=== PATIENT | female | born 1975 | race Caucasian/White ===

== ENCOUNTER 2023-02-01 09:01 | Outpatient (OUT) | payer BC, SELFPAY ==
--- NOTE | 2023-02-01 09:05 | MM_ITS ---
Patient: MICHELLE WHITAKER Exam Date: 02/01/2023 : 1975 Gender:F Ordering : Non-Staff Physician Admission #: [id number] Family : ALF DOWD Order #: [id number] CLICK HERE TO VIEW EXAM RADIOLOGY REPORT PROCEDURE: MM TOMOSYNTHESIS SCREENING BI COMPARISON: MG MAMM SCREEN [place] W CAD, 06/27/2017. MG MAMM SCREEN 3D [place] CAD, 01/26/2022. INDICATIONS: Screening Calculator Name NCI Breast Cancer Risk Assessment Tool 5 Year Breast Cancer Risk 0.40% Lifetime Breast Cancer Risk 4.40% Personal Breast Cancer No Personal Ovarian Cancer No Treatments None Family Cancers Aunt-paternal with breast cancer at age ~50. LOCATION: [facility] BREAST COMPOSITION: Heterogeneously dense,which may obscure small masses. FINDINGS: DIAGNOSTIC CATEGORY 1--NEGATIVE. NO CHANGE FROM COMPARISON ASSESSMENT. Scattered benign-appearing lymph nodes are present. RIGHT BREAST: No significant suspicious finding. LEFT BREAST: No significant suspicious finding. RECOMMENDATIONS: ROUTINE MAMMOGRAM AND CLINICAL EVALUATION IN 12 MONTHS. PLEASE NOTE: A NORMAL MAMMOGRAM DOES NOT EXCLUDE THE POSSIBILITY OF BREAST CANCER. A CLINICALLY SUSPICIOUS PALPABLE LUMP SHOULD BE BIOPSIED. Dictated by: Alf Diaz MD on 02/01/2023 at 10:01 Approved by: Alf Diaz MD on 02/01/2023 at 10:02
== END 2023-02-01 09:02 | disposition home or self-care (01) ==
PROVIDERS: PCP Family Medicine
DX: Z12.31 Encounter for screening mammogram for malignant neoplasm of breast (principal); Z80.3 Family history of malignant neoplasm of breast
CPT/HCPCS: 77063; 77067

== ENCOUNTER 2024-03-13 12:51 | Outpatient (OUT) | payer BC, SELFPAY ==
--- NOTE | 2024-03-13 12:56 | MM_ITS ---
Patient Name: MICHELLE WHITAKER MR#: [id number] : 1975 Exam Date: 03/13/2024 Ordering Doctor: DR ALF DOWD RADIOLOGY REPORT PROCEDURE: MM TOMOSYNTHESIS SCREENING BI COMPARISON: MG MAMM SCREEN 3D [place] CAD, 01/26/2022. MM TOMOSYNTHESIS SCREENING BI, 02/01/2023. INDICATIONS: screening for malignant neoplasm of breast Calculator Name NCI Breast Cancer Risk Assessment Tool 5 Year Breast Cancer Risk 0.40% Lifetime Breast Cancer Risk 4.30% Personal Breast Cancer No Personal Ovarian Cancer No Treatments None Family Cancers Aunt-paternal with breast cancer at age ~50. LOCATION: [facility] BREAST COMPOSITION: The breasts are heterogeneously dense,which may obscure small masses. FINDINGS: DIAGNOSTIC CATEGORY 1--NEGATIVE. NO CHANGE FROM COMPARISON ASSESSMENT. Scattered benign-appearing calcifications are present. Scattered benign-appearing lymph nodes are present. RIGHT BREAST: No significant suspicious finding. LEFT BREAST: No significant suspicious finding. RECOMMENDATIONS: ROUTINE MAMMOGRAM AND CLINICAL EVALUATION IN 12 MONTHS. PLEASE NOTE: A NORMAL MAMMOGRAM DOES NOT EXCLUDE THE POSSIBILITY OF BREAST CANCER. A CLINICALLY SUSPICIOUS PALPABLE LUMP SHOULD BE BIOPSIED. Dictated by: Alf Diaz MD on 03/13/2024 at 14:58 Approved by: Alf Diaz MD on 03/13/2024 at 15:00
--- OUTSIDE RECORDS SUMMARY | 2024-03-13 13:14 | XMS_ITS | CCD ---
Author Organization [facility] Care Team Providers Care Manager Card Name Role Phone Annika BREEN, Xander Holland Unavailable ISAKOV, DIO Unavailable Unavailable ISAKOV, DIO Unavailable Unavailable ISAKOV, DIO Unavailable Unavailable ISAKOV, DIO Unavailable Unavailable ISAKOV, DIO Unavailable Unavailable ISAKOV, DIO Unavailable Unavailable FESTUS ALMARAZ Referring Unavailable SRINIVAS LOYA Primary Care Unavailable Srinivas Loya Primary Care Provider Srinivas Loya MD Primary Care Provider [phone] SRINIVAS LOYA Primary Care Unavailable SRINIVAS LOYA Primary Care Unavailable KARASIReinaldo, DR FERNANDEZ Admitting Unavailable KARASIK, DR FERNANDEZ Attending Unavailable KARASIK, DR FERNANDEZ Consulting Unavailable MISC, DR DIAZ Primary Care Unavailable BRYN MAWR, DR SRINIVAS Day Consulting Unavailable KARASIK, DR FERNANDEZ Attending Unavailable KARASIK, DR FERNANDEZ Consulting Unavailable MISC, DR DIAZ Primary Care Unavailable KARASIK, DR FERNANDEZ Admitting Unavailable KOKO RIVERA Referring Unavailable SRINIVAS LOYA Primary Care Unavailable Problems Active Problems Problem Classification Problem Date Documented Date Episodic/Chronic Immunizations and screening for infectious disease (2 sources) Contact with and (suspected) exposure to other viral communicable diseases; Translations: [Encounter for screening for human papillomavirus (HPV)] Onset: 12-09-2021 Episodic Other screening for suspected conditions (not mental disorders or infectious disease) (8 sources) Encounter for screening mammogram for malignant neoplasm of breast; Translations: [Encounter for screening for malignant neoplasm of cervix] Onset: 12-07-2021 Episodic Residual codes; unclassified (1 source) Family history of malignant neoplasm of breast; Translations: [FAMILY HX MALIG NEOPLASM OF BREAST] Onset: 01-30-2022 Episodic Unclassified (1 source) Unknown / UNK(Unknown) Onset: 09-29-2016 Unclassified (2 sources) physical; Translations: [physical] Onset: 05-22-2023 Past or Other Problems Problem Classification Problem Date Documented Da te Episodic/Chronic Other lower respiratory disease (1 source) Cough; Translations: [Cough] Episodic Other nervous system disorders (1 source) Loss of taste; Translations: [Loss of taste] Episodic Other nervous system disorders (1 source) Loss of sense of smell; Translations: [Loss of smell] Episodic Unclassified (2 sources) Encounter for cosmetic surgery; Translations: [Encounter for cosmetic surgery] Onset: 09-29-2016 08-09-2017 Episodic Unclassified (1 source) Problem Results Test Name Value Interpretation Reference Range Facility [facility] MAMM SCREEN 3D [place] CADon 01-26-2022 [facility] MAMM SCREEN 3D [place] CAD Patient: ALYSSA WHITAKER Exam Date: 01/26/2022 : 1975 Gender:F Ordering : DR REBECCA KINGSTON . Admission #: [id number] Family : Order #: [id number] CLICK HERE TO VIEW EXAM RADIOLOGY REPORT PROCEDURE: MAMMOGRAM SCREENING 3D BILATERAL CAD COMPARISON: MG MAMM SCREEN [place] W CAD, 06/08/2016. MG MAMM SCREEN [place] W CAD, 06/27/2017. INDICATIONS: Screening mammography Calculator Name NCI Breast Cancer Risk Assessment Tool 5 Year Breast Cancer Risk 0.40% Lifetime Breast Cancer Risk 4.40% Personal Breast Cancer No Personal Ovarian Cancer No Treatments None Family Cancers Aunt-paternal with breast cancer at age 50. LOCATION: [facility] BREAST COMPOSITION: Heterogeneously dense,which may obscure small masses. FINDINGS: DIAGNOSTIC CATEGORY 2--BENIGN FINDING. NO CHANGE FROM COMPARISON. Scattered benign-appearing calcifications are present. Scattered benign-appearing lymph nodes are present. RIGHT BREAST: No significant suspicious finding. LEFT BREAST: No significant suspicious finding. RECOMMENDATIONS: ROUTINE MAMMOGRAM AND CLINICAL EVALUATION IN 12 MONTHS. PLEASE NOTE: A NORMAL MAMMOGRAM DOES NOT EXCLUDE THE POSSIBILITY OF BREAST CANCER. A CLINICALLY SUSPICIOUS PALPABLE LUMP SHOULD BE BIOPSIED. Dictated by: Srinivas Diaz MD on 01/26/2022 at 13:20 Approved by: Srinivas Diaz MD on 01/26/2022 at 13:30 Normal [facility] PAP ACOG PANEL 2: 30 to 65on 12-14-2021 . . Normal [facility] Comment on above: Result Comment: Perf ormed at: WB Performed By: #### [id number] #### [facility] [address] [address] [address] Ernestine Corrales Age Gdln ACOG Testing 30-65 Normal [facility] Comment on above: Performed By: #### [id number] #### [facility] [address] [address] [address] Ernestine Corrales DIAGNOSIS: Comment Normal [facility] Comment on above: Result Comment: NEGA TIVE FOR INTRAEPITHELIAL LESION OR MALIGNANCY. THIS SPECIMEN WAS RESCREENED PART OF OUR CAPACITOR PACK PRESS OPERATOR PROGRAM. Performed at: WB Performed By: #### [id number] #### [facility] [address] [place] [address] Dr. Ernestine Corrales HPV Aptima Negative Normal Negative [facility] Comment on above: Result Comment: This nucleic acid amplification test detects fourteen high-risk HPV types (16,18,31,33,35,39,45,51,52,56,58,59,66,68) without differentiation. Performed at: =G Performed By: #### [id number] #### [facility] [address] [place] [address] Dr. Ernestine Corrales Methodology: Comment Normal [facility] Comment on above: Result Comment: This liquid based ThinPrep(R) pap test was screened with the use of an image guided system. Performed at: WB Performed By: #### [id number] #### [facility] [address] [place] [address] Dr. Ernestine Corrales Note: Comment Normal [facility] Comment on above: Result Comment: The Pap smear is a screening test designed to aid in the detection of premalignant and malignant conditions of the uterine cervix. It is not a diagnostic procedure and should not be used as the sole means of detecting cervical cancer. Both false-positive and false-negative reports do occur. . Performed at: WB Performed By: #### [id number] #### [facility] [address] [place] [address] Dr. Ernestine Corrales Performed by: Comment Normal [facility] Comment on above: Result Comment: Constance Gomez, Billing Rep (ASCP) Performed at: WB Performed By: #### [id number] #### [facility] [address] [place] [address] Dr. Ernestine Corrales QC reviewed by: Comment Normal [facility] Comment on above: Result Comment: Katya Vides, Supervisory Billing Rep (ASCP) Performed at: WB Performed By: #### [id number] #### [facility] [address] [place] [address] Dr. Ernestine Corrales Specimen adequacy: Comment Normal [facility] Comment on above: Result Comment: Sati sfactory for evaluation. Endocervical and/or squamous metaplastic cells (endocervical component) are present. Performed at: WB Performed By: #### [id number] #### [facility] [address] [place] [address] Dr. Ernestine Corrales APTTon 01-12-2021 aPTT Coag (Bld) [Time] 27.7 s Normal 23.9-33.8 [facility] Comment on above: Result Comment: IV Heparin Therapy Range: 62.0-94.0 Performed By: #### U MICAO, PTT, CDP, HCG, PT, UA, CP #### [facility] [address] [place] [address] Manager Occupational: Srinivas Krueger MD APTTOrdered By: Srinivas juan on 01-12-2021 aPTT Coag (Bld) [Time] 27.7 s [facility] Phone: Comment on above: IV Heparin Therapy Range: 62.0-94.0 [facility] Work Phone: CBC Auto DifferentialOrdered By: Srinivas Loya on 01-12-2021 Absolute Eos # 0.04 [facility] Work Phone: Absolute Immature Granulocyte <0.03 [facility] Work Phone: [phone] Absolute Lymph # 1.59 [facility] Work Phone: [phone] Absolute Gillespie # 0.36 [facility] Work Phone: Basophils (Bld) [#/Vol] 0.03 10*3/uL [employer] Phone: Basophils/100 WBC (Bld) 1 % 0 - 2 % [employer] Phone: Differential Type NOT REPORTED [employer] Phone: Eosinophils/100 WBC (Bld) 1 % 1 - 4 % [employer] Phone: Hematocrit (Bld) [Volume fraction] 42.7 % 36.3 - 47.1 % [employer] Phone: Hemoglobin.gastroint estinal spec 1 Ql (Stl) 14.0 g/dL 11.9 - 15.1 g/dL [employer] Phone: Immature granulocytes/100 WBC (Bld) 0 % 0 [employer] Phone: Lymphocytes/100 WBC (Bld) 43 % 24 - 43 % [employer] Phone: MCH (RBC) [Entitic mass] 31.0 pg 25.2 - 33.5 pg [employer] Phone: MCHC (RBC) [Mass/Vol] 32.8 g/dL 28.4 - 34.8 g/dL [employer] Phone: MCV (RBC) [Entitic vol] 94.5 fL 82.6 - 102.9 fL [employer] Phone: Monocytes/100 WBC (Bld) 10 % 3 - 12 % [employer] Phone: NRBC Automated 0.0 0.0 per 100 WBC [employer] Phone: Platelet distribution width (Bld) [Ratio] 12.5 % 11.8 - 14.4 % [employer] Phone: Platelet Estimate NOT REPORTED [employer] Phone: Platelet mean volume (Bld) [Entitic vol] 9.3 fL 8.1 - 13.5 fL [employer] Work Phone: Platelets (Bld) [#/Vol] 215 10*3/uL [employer] Phone: RBC (Bld) [#/Vol] 4.52 10*6/uL 3.95 - 5.11 m/uL [employer] Phone: RBC (Bld) [#/Vol] NOT REPORTED [employer] Phone: Segmented neutrophils/100 WBC (Bld) 45 % 36 - 65 % [employer] Phone: Segs Absolute 1.71 [employer] Work Phone: WBC (Bld) [#/Vol] 3.7 10*3/uL [employer] Phone: WBC (Bld) [#/Vol] NOT REPORTED [employer] Phone: [employer] Phone: CBC with Diffon 01-12-2021 Abs. Basophil 0.03 k/uL Normal 0.00-0.20 [facility] Comment on above: Performed By: #### U MICAO, PTT, CDP, HCG, PT, UA, CP #### [facility] [address] [place] [address] Manager Occupational: Srinivas Krueger MD Abs.Imm.Granulocyte <0.03 Normal 0.00-0.30 [facility] Comment on above: Performed By: #### U MICAO, PTT, CDP, HCG, PT, UA, CP #### [facility] [address] [place] [address] Manager Occupational: Srinivas Krueger MD Abs.Neutrophil (Seg) 1.71 k/uL Normal 1.50-8.[address] [facility] Comment on above: Performed By: #### U MICAO, PTT, CDP, HCG, PT, UA, CP #### [facility] [address] [place], [facility]83 Manager Occupational: Srinivas Krueger MD Basophils/100 WBC (Bld) 1 % Normal 0-2 [facility] Comment on above: Performed By: #### U MICAO, PTT, CDP, HCG, PT, UA, CP #### [facility] [address] [place] [id number] Manager Occupational: Srinivas Krueger MD Eosinophils (Bld) [#/Vol] 0.04 10*3/uL Normal 0.00-0.44 [facility] Comment on above: Performed By: #### U MICAO, PTT, CDP, HCG, PT, UA, CP #### [address] [place] [id number] Manager Occupational: Srinivas Krueger MD Eosinophils/100 WBC (Bld) 1 % Normal 1-4 [facility] Comment on above: Performed By: #### U MICAO, PTT, CDP, HCG, PT, UA, CP #### [address] [place] [id number] Manager Occupational: Srinivas Krueger MD Erythrocyte distribution width (RBC) [Ratio] 12.5 % Normal 11.8-14.4 [facility] Comment on above: Performed By: #### U MICAO, PTT, CDP, HCG, PT, UA, CP #### [address] [place], [facility]83 Manager Occupational: Srinivas Krueger MD Hematocrit (Bld) [Volume fraction] 42.7 % Normal 36.3-47.1 [facility] Comment on above: Performed By: #### U MICAO, PTT, CDP, HCG, PT, UA, CP #### [address] [place] [address] Manager Occupational: Srinivas Krueger MD Hemoglobin (Bld) [Mass/Vol] 14.0 g/dL Normal 11.9-15.1 [facility] Comment on above: Performed By: #### U MICAO, PTT, CDP, HCG, PT, UA, CP #### [facility] [address] [place], [place] [id number] Manager Occupational: Srinivas Krueger MD Immature granulocytes/100 WBC (Bld) 0 % Normal 0 [facility] Comment on above: Performed By: #### U MICAO, PTT, CDP, HCG, PT, UA, CP #### [facility] [address] [place], [place] [id number] Manager Occupational: Srinivas Krueger MD Lymphocytes (Bld) [#/Vol] 1.59 10*3/uL Normal 1.10-3.70 [facility] Comment on above: Performed By: #### U MICAO, PTT, CDP, HCG, PT, UA, CP #### [address] [place], [facility]83 Manager Occupational: Srinivas Krueger MD Lymphocytes/100 WBC (Bld) 43 % Normal 24-43 [facility] Comment on above: Performed By: #### U MICAO, PTT, CDP, HCG, PT, UA, CP #### [address] [place], [facility]83 Manager Occupational: Srinivas Krueger MD MCH (RBC) [Entitic mass] 31.0 pg Normal 25.2-33.5 [facility] Comment on above: Performed By: #### U MICAO, PTT, CDP, HCG, PT, UA, CP #### [address] [place], [place] [id number] Manager Occupational: Srinivas Krueger MD MCHC (RBC) [Mass/Vol] 32.8 g/dL Normal 28.4-34.8 [facility] Comment on above: Performed By: #### U MICAO, PTT, CDP, HCG, PT, UA, CP #### [facility] [address] [place], [place] [id number] Manager Occupational: Srinivas Krueger MD MCV (RBC) [Entitic vol] 94.5 fL Normal 82.6-102.9 [facility] Comment on above: Performed By: #### U MICAO, PTT, CDP, HCG, PT, UA, CP #### [facility] [address] [place], [facility]83 Manager Occupational: Srinivas Krueger MD Monocytes (Bld) [#/Vol] 0.36 10*3/uL Normal 0.10-1.20 [facility] Comment on above: Performed By: #### U MICAO, PTT, CDP, HCG, PT, UA, CP #### [facility] [address] [place], [facility]83 Manager Occupational: Srinivas Krueger MD Monocytes/100 WBC (Bld) 10 % Normal 3-12 [facility] Comment on above: Performed By: #### U MICAO, PTT, CDP, HCG, PT, UA, CP #### [address] [place], [facility]83 Manager Occupational: Srinivas Krueger MD Neutrophil (Seg) 45 % Normal 36-65 [facility] Comment on above: Performed By: #### U MICAO, PTT, CDP, HCG, PT, UA, CP #### [address] [place], [facility]83 Manager Occupational: Srinivas Krueger MD NRBC Automated 0.0 per 100 WBC Normal 0.0 [facility] Comment on above: Performed By: #### U MICAO, PTT, CDP, HCG, PT, UA, CP #### [facility] [address] [place], [facility]83 Manager Occupational: Srinivas Krueger MD Platelet mean volume (Bld) [Entitic vol] 9.3 fL Normal 8.1-13.5 [facility] Comment on above: Performed By: #### U MICAO, PTT, CDP, HCG, PT, UA, CP #### [facility] [address] [place] [address] Manager Occupational: Srinivas Krueger MD Platelets (Bld) [#/Vol] 215 10*3/uL Normal 138-453 [facility] Comment on above: Performed By: #### U MICAO, PTT, CDP, HCG, PT, UA, CP #### [facility] [address] [place] [address] Manager Occupational: Srinivas Krueger MD RBC (Bld) [#/Vol] 4.52 10*6/uL Normal 3.95-5.11 [facility] Comment on above: Performed By: #### U MICAO, PTT, CDP, HCG, PT, UA, CP #### [address] [place], [place] [address] Manager Occupational: Srinivas Krueger MD WBC (Bld) [#/Vol] 3.7 10*3/uL Normal 3.5-11.3 [facility] Comment on above: Performed By: #### U MICAO, PTT, CDP, HCG, PT, UA, CP #### [address] [place], [place] [id number] Manager Occupational: Srinivas Krueger MD Auto Diff Performed NOT REPORTED Normal [facility] Comment on above: Performed By: #### U MICAO, PTT, CDP, HCG, PT, UA, CP #### [facility] [address] [place] [address] [place] [address] Manager Occupational: Srinivas Krueger MD Platelet Estimate NOT REPORTED Normal [facility] Comment on above: Performed By: #### U MICAO, PTT, CDP, HCG, PT, UA, CP #### [address] [place], [place] [id number] Manager Occupational: Srinivas Krueger MD RBC morphology finding Nom (Bld) NOT REPORTED Normal [facility] Comment on above: Performed By: #### U MICAO, PTT, CDP, HCG, PT, UA, CP #### [facility] [address] [place] [address] Manager Occupational: Srinivas Krueger MD WBC Morphology NOT REPORTED Normal [facility] Comment on above: Performed By: #### U MICAO, PTT, CDP, HCG, PT, UA, CP #### [facility] [address] [place], [place] [id number] Manager Occupational: Srinivas Krueger MD Comp Metabolic Profon 2020 (cont.) Normal [facility] Comment on above: Result Comment: Aver age GFR for 40-49 years old: 99 mL/min/1.73sq m Chronic Kidney Disease: <60 mL/min/1.73sq m Kidney failure: <15 mL/min/1.73sq m eGFR calculated using average adult body mass. Additional eGFR calculator available at: http://www.[employer]SyMynd/multiple_crcl_2012.htm Performed By: #### U MICAO, PTT, CDP, HCG, PT, UA, CP #### [address] [place] [address] Manager Occupational: Srinivas Krueger MD Albumin [Mass/Vol] 4.4 g/dL Normal 3.5-5.2 [facility] Comment on above: Performed By: #### U MICAO, PTT, CDP, HCG, PT, UA, CP #### [facility] [address] [place] [address] Manager Occupational: Srinivas Krueger MD Albumin/Glob Ratio 1.6 Normal 1.0-2.5 [facility] Comment on above: Performed By: #### U MICAO, PTT, CDP, HCG, PT, UA, CP #### [facility] [address] [place] [address] Manager Occupational: Srinivas Krueger MD Alkaline Phos 60 U/L Normal 35-104 [facility] Comment on above: Performed By: #### U MICAO, PTT, CDP, HCG, PT, UA, CP #### [facility] [address] [place], [place] [id number] Manager Occupational: Srinivas Krueger MD ALT [Catalytic activity/Vol] 12 U/L Normal 5-33 [facility] Comment on above: Performed By: #### U MICAO, PTT, CDP, HCG, PT, UA, CP #### [facility] [address] [place], [place] [id number] Manager Occupational: Srinivas Krueger MD Anion gap [Moles/Vol] 9 mmol/L Normal 9-17 [facility] Comment on above: Performed By: #### U MICAO, PTT, CDP, HCG, PT, UA, CP #### [facility] [address] [place], [place] [id number] Manager Occupational: Srinivas Krueger MD AST [Catalytic activity/Vol] 17 U/L Normal <32 [facility] Comment on above: Performed By: #### U MICAO, PTT, CDP, HCG, PT, UA, CP #### [facility] [address] [place], [place] [id number] Manager Occupational: Srinivas Krueger MD Bilirubin [Mass/Vol] 0.54 mg/dL Normal 0.3-1.[address] [facility] Comment on above: Performed By: #### U MICAO, PTT, CDP, HCG, PT, UA, CP #### [facility] [address] [place], [place] [id number] Manager Occupational: Srinivas Krueger MD BUN/CRE Ratio 15 Normal 9-20 [facility] Comment on above: Performed By: #### U MICAO, PTT, CDP, HCG, PT, UA, CP #### [facility] [address] [place], [place] [id number] Manager Occupational: Srinivas Krueger MD Calcium [Mass/Vol] 9.1 mg/dL Normal 8.6-10.4 [facility] Comment on above: Performed By: #### U MICAO, PTT, CDP, HCG, PT, UA, CP #### [facility] [address] [place] [address] Manager Occupational: Srinivas Krueger MD Chloride [Moles/Vol] 100 mmol/L Normal 98-[address] [facility] Comment on above: Performed By: #### U MICAO, PTT, CDP, HCG, PT, UA, CP #### [facility] [address] [place] [address] Manager Occupational: Srinivas Krueger MD CO2 [Moles/Vol] 23 mmol/L Normal 20-31 [facility] Comment on above: Performed By: #### U MICAO, PTT, CDP, HCG, PT, UA, CP #### [facility] [address] [place], [place] [id number] Manager Occupational: Srinivas Krueger MD Creatinine [Mass/Vol] 0.74 mg/dL Normal 0.50-0.90 [facility] Comment on above: Performed By: #### U MICAO, PTT, CDP, HCG, PT, UA, CP #### [facility] [address] [place] [address] Manager Occupational: Srinivas Krueger MD GFR, Amer >60 Normal >60 [facility] Comment on above: Performed By: #### U MICAO, PTT, CDP, HCG, PT, UA, CP #### [facility] [address] [place] [address] Manager Occupational: Srinivas Krueger MD GFR,non Amer >60 Normal >[address] [facility] Comment on above: Performed By: #### U MICAO, PTT, CDP, HCG, PT, UA, CP #### [facility] [address] [place], [place] [id number] Manager Occupational: Srinivas Krueger MD Glucose [Mass/Vol] 100 mg/dL High 70-99 [facility] Comment on above: Performed By: #### U MICAO, PTT, CDP, HCG, PT, UA, CP #### [facility] [address] [place] [address] Manager Occupational: Srinivas Krueger MD Potassium [Moles/Vol] 4.0 mmol/L Normal 3.7-5.3 [facility] Comment on above: Performed By: #### U MICAO, PTT, CDP, HCG, PT, UA, CP #### [facility] [address] [place] [address] Manager Occupational: Srinivas Krueger MD Protein [Mass/Vol] 7.2 g/dL Normal 6.4-8.3 [facility] Comment on above: Performed By: #### U MICAO, PTT, CDP, HCG, PT, UA, CP #### [facility] [address] [place] [address] Manager Occupational: Srinivas Krueger MD Sodium [Moles/Vol] 132 mmol/L Low 135-144 [facility] Comment on above: Performed By: #### U MICAO, PTT, CDP, HCG, PT, UA, CP #### [facility] [address] [place], [facility]83 Manager Occupational: Srinivas Krueger MD Staging: Normal [facility] Comment on above: Result Comment: Stag e 1: Some kidney damage normal GFR Stage 2: Mild kidney damage GFR 60-89 Stage 3: Moderate kidney damage GFR 30-59 Stage 4: Severe kidney damage GFR 15-29 Stage 5: Severe kidney damage GFR <15 ESRD - chronic treatment by dialysis or transplant Performed By: #### U MICAO, PTT, CDP, HCG, PT, UA, CP #### [facility] [address] [place] [address] Manager Occupational: Srinivas Kruegre MD Urea nitrogen [Mass/Vol] 11 mg/dL Normal 6-20 [facility] Comment on above: Performed By: #### U MICAO, PTT, CDP, HCG, PT, UA, CP #### [facility] [address] [place] [address] Manager Occupational: Srinivas Krueger MD Comprehensive Metabolic Pane lOrdered By: Srinivas Loya on 01-12-2021 Albumin [Mass/Vol] 4.4 g/dL 3.5 - 5.2 g/dL [employer] Phone: Albumin/Globulin [Mass ratio] 1.6 {ratio} [employer] Phone: ALP (Bld) [Catalytic activity/Vol] 60 U/L 35 - 104 U/L [employer] Phone: ALT [Catalytic activity/Vol] 12 U/L 5 - 33 U/L [facility] Phone: Anion gap [Moles/Vol] 9 mmol/L 9 - 17 mmol/L [facility] Phone: AST [Catalytic activity/Vol] 17 U/L <32 [employer] Phone: Bilirubin [Mass/Vol] 0.54 mg/dL 0.3 - 1 .2 mg/dL [facility] Phone: Calcium [Mass/Vol] 9.1 mg/dL 8.6 - 10. 4 mg/dL [employer] Phone: Chloride [Moles/Vol] 100 mmol/L 98 - 10 7 mmol/L [employer] Phone: CO2 [Moles/Vol] 23 mmol/L 20 - 31 mmol/L [employer] Phone: Creatinine [Mass/Vol] 0.74 mg/dL 0.50 - 0.90 mg/dL [employer] Phone: Free PSA/Total PSA [Mass fraction] 7.2 g/dL 6.4 - 8.3 g/dL [employer] Phone: GFR >60 >60 mL/min [employer] Phone: GFR Non- >60 >60 mL/min [employer] Phone: Glucose [Mass/Vol] 100 mg/dL High 70 - 99 mg/dL [employer] Phone: Interpretation and review of laboratory results Abnormal [employer] Phone: Potassium [Moles/Vol] 4.0 mmol/L 3.7 - 5.3 mmol/L [employer] Phone: Sodium [Moles/Vol] 132 mmol/L Low 135 - 144 mmol/L [employer] Phone: Urea nitrogen (BldV) [Mass/Vol] 11 mg/dL 6 - 20 mg/dL [employer] Phone: Urea nitrogen/Creatinine (Bld) [Mass ratio] 15 [employer] Phone: [employer] Phone: EKG 12 LeadOrdered By: Nai Amanda on 01-12-2021 Atrial Rate 59 BPM [employer] Phone: P [place] 11 degrees [employer] Phone: P-R Interval 150 ms [employer] Phone: Q-T Interval 442 ms [employer] Phone: QRS Duration 76 ms [employer] Phone: QTc Calculation (Bazett) 437 ms [employer] Phone: R [place]wick 53 degrees [employer] Phone: T [place] 56 degrees [employer] Phone: Ventricular Rate 59 BPM [facility] [facility] Phone: Sinus bradycardia Low voltage QRS Cannot rule out Anterior infarct , age undetermined Abnormal ECG No previous ECGs available Confirmed by Virginia Brothers MD ([id number]) on 01/12/2021 11:35:53 PM [employer] Phone: Stew, Mhpn Incoming E kg Results From [facility] - 01/12/2021 11:36 PM EDT Sinus bradycardia Low voltage QRS Cannot rule out Anterior infarct , age undetermined Abnormal ECG No previous ECGs available Confirmed by Virginia Brothers MD ([id number]) on 01/12/2021 11:35:53 PM [employer] Phone: [employer] Phone: HCG Qualitative, SerumOrdere d By: Srinivas Loya on 01-12-2021 hCG Qual Negative NEGATIVE [employer] Phone: Comment on above: Specimens with hCG l evels near the threshold of the test (25 mIU/mL) may give a negative or indeterminate result. In such cases, another test should be performed with a new specimen in 48-72 hours. If early is suspected clinically in this setting, correlation with quantitative serum b-hCG level is suggested. [employer] has confirmed the use of plasma for this test. This has not been cleared or approved by the U.S. Food and Drug Administration. The FDA has determined that such clearance is not necessary. [employer] Phone: HCG Screen, Bloodon 01-13-20 21 HCG Screen, Blood Negative Normal NEG [facility] Comment on above: Result Comment: Spec imens with hCG levels near the threshold of the test (25 mIU/mL) may give a negative or indeterminate result. In such cases, another test should be performed with a new specimen in 48-72 hours. If early is suspected clinically in this setting, correlation with quantitative serum b-hCG level is suggested. [employer] has confirmed the use of plasma for this test. This has not been cleared or approved by the U.S. Food and Drug Administration. The FDA has determined that such clearance is not necessary. Performed By: #### U MICAO, PTT, CDP, HCG, PT, UA, CP #### [facility] [address] [place] [address] Manager Occupational: Srinivas Krueger MD Laboratory - Chemistry and C hemistry - challengeOrdered By: Srinivas Loya on 01-12-2021 GFR/1.73 sq M.predicted MDRD (S/P/Bld) [Vol rate/Area] [facility] Work Phone: Comment on above: Average GFR for 40-4 9 years old: 99 mL/min/1.73sq m Chronic Kidney Disease: <60 mL/min/1.73sq m Kidney failure: <15 mL/min/1.73sq m eGFR calculated using average adult body mass. Additional eGFR calculator available at: http://www.[employer]/multiple_crcl_2012.htm Stage 1: Some kidney damage normal GFR Stage 2: Mild kidney damage GFR 60-89 Stage 3: Moderate kidney damage GFR 30-59 Stage 4: Severe kidney damage GFR 15-29 Stage 5: Severe kidney damage GFR <15 ESRD - chronic treatment by dialysis or transplant Microscopic UrinalysisOrdere d By: Srinivas Loya on 01-12-2021 - [facility] Work Phone: Amorphous, UA NOT REPORTED None [facility] Work Phone: Bacteria, UA TRACE Abnormal None [facility] Work Phone: Casts UA NOT REPORTED /LPF [facility] Work Phone: Crystals, UA NOT REPORTED None /HPF [facility] Work Phone: Epithelial Cells UA 2 TO 5 [facility] Work Phone: Mucus, UA NOT REPORTED None [facility] Work Phone: Other Observations UA NOT REPORTED NOT REQ. [facility] Work Phone: RBC, UA 5 TO 10 [facility] Work Phone: Renal Epithelial, UA NOT REPORTED 0 /HPF [facility] Work Phone: Trichomonas, UA NOT REPORTED None [employer] Work Phone: WBC, UA 0 TO 2 [facility] Phone: Yeast, UA NOT REPORTED None [facility] Phone: No Panel InformationOrdered By: Srinivas Loya on 01-12-2021 Interpretation and review of laboratory results Abnormal [facility] Phone: [facility] Phone: PTon 01-12-2021 INR Coag (PPP) [Relative time] 1.2 {INR} Normal [facility] Comment on above: Result Comment: Non-therapeutic Range: INR = 0.9-1.2 Therapeutic Range: Moderate Anticoagulant Intensity: INR = 2.0-3.0 High Anticoagulant Intensity: INR = 2.5-3.5 Performed By: #### U MICAO, PTT, CDP, HCG, PT, UA, CP #### [facility] [address] [place] [address] [place] [address] Manager Occupational: Srinivas Krueger MD PT Coag (PPP) [Time] 14.6 s High 11.5-14.[address] [facility] Comment on above: Performed By: #### U MICAO, PTT, CDP, HCG, PT, UA, CP #### [facility] [address] [place] [address] [place] [address] Manager Occupational: Srinivas Krueger MD Protime-INROrdered By: Srinivas Loya on 01-12-2021 INR Coag (Bld) [Relative time] 1.2 {INR} [facility] [employer] Phone: Comment on above: Non-therapeutic Range: INR = 0.9-1.2 Therapeutic Range: Moderate Anticoagulant Intensity: INR = 2.0-3.0 High Anticoagulant Intensity: INR = 2.5-3.5 Interpretation and review of laboratory results Abnormal [facility] Phone: PT Coag (PPP) [Time] 14.6 s High [facility] Work Phone: [facility] Work Phone: UrinalysisOrdered By: Srinivas Loya on 01-12-2021 Bilirubin Urine Negative NEGATIVE [facility] Work Phone: Color, UA Yellow Yellow [facility] Work Phone: Glucose, Ur Negative NEGATIVE [facility] Work Phone: Ketones Ql (U) Negative NEGATIVE [facility] Work Phone: Leukocyte esterase Test strip Ql (U) Negative NEGATIVE [facility] Work Phone: Nitrite, Urine Negative NEGATIVE [facility] Work Phone: pH, UA 6.0 [facility] Work Phone: Protein, UA Negative NEGATIVE [facility] Work Phone: Specific Vaughn, UA 1.025 [facility] Work Phone: Turbidity UA Clear Clear [facility] Work Phone: Urinalysis Comments NOT REPORTED [facility] Work Phone: Urine Hgb 1+ Abnormal NEGATIVE [facility] Work Phone: Urobilinogen, Urine Normal Normal [facility] Work Phone: Urinalysis, Routineon 2020 Bilirubin, SemiQt,Ur Negative Normal NEG [facility] Comment on above: Performed By: #### U MICAO, PTT, CDP, HCG, PT, UA, CP #### [facility] [address] [place] [address] Manager Occupational: Srinivas Krueger MD Blood, Urine 1+ Abnormal NEG [facility] Comment on above: Performed By: #### U MICAO, PTT, CDP, HCG, PT, UA, CP #### [facility] [address] [place] [address] Manager Occupational: Srinivas Krueger MD Clarity (U) Clear Normal CLEAR [facility] Comment on above: Performed By: #### U MICAO, PTT, CDP, HCG, PT, UA, CP #### [facility] [address] [place], [place] [id number] Manager Occupational: Srinivas Krueger MD Color (U) Yellow Normal YEL [facility] Comment on above: Performed By: #### U MICAO, PTT, CDP, HCG, PT, UA, CP #### [facility] [address] [place], [place] [phone] Manager Occupational: Srinivas Krueger MD Glucose Ql (U) Negative Normal NEG [facility] Comment on above: Performed By: #### U MICAO, PTT, CDP, HCG, PT, UA, CP #### [facility] [address] [place] [address] [place] [place], [place] [id number] Manager Occupational: Srinivas Krueger MD Ketones Ql (U) Negative Normal NEG [facility] Comment on above: Performed By: #### U MICAO, PTT, CDP, HCG, PT, UA, CP #### [address] [place], [place] [id number] Manager Occupational: Srinivas Krueger MD Leukocyte esterase Test strip Ql (U) Negative Normal NEG [facility] Comment on above: Performed By: #### U MICAO, PTT, CDP, HCG, PT, UA, CP #### [facility] [address] [place] [address] [place] [place], [place] [id number] Manager Occupational: Srinivas Krueger MD Nitrite,Ur Negative Normal NEG [facility] Comment on above: Performed By: #### U MICAO, PTT, CDP, HCG, PT, UA, CP #### [facility] [address] [place] [address] [place] [place], [place] [phone] Manager Occupational: Srinivas Krueger MD PH,Ur 6.0 Normal 5.0-9.0 [facility] Comment on above: Performed By: #### U MICAO, PTT, CDP, HCG, PT, UA, CP #### [facility] [address] [place] [address] [place] [address] Manager Occupational: Srinivas Krueger MD Protein Ql (U) Negative Normal NEG [facility] Comment on above: Performed By: #### U MICAO, PTT, CDP, HCG, PT, UA, CP #### [address] [place] [address] Manager Occupational: Srinivas Krueger MD Spec. Vaughn,Ur 1.025 High 1.010-1.02 0 [facility] Comment on above: Performed By: #### U MICAO, PTT, CDP, HCG, PT, UA, CP #### [address] [place] [address] Manager Occupational: Srinivas Krueger MD Urobilinogen,Ur Normal Normal NORM [facility] Comment on above: Performed By: #### U MICAO, PTT, CDP, HCG, PT, UA, CP #### [address] [place] [address] Manager Occupational: Srinivas Krueger MD Comment NOT REPORTED Normal [facility] Comment on above: Performed By: #### U MICAO, PTT, CDP, HCG, PT, UA, CP #### [address] [place] [address] Manager Occupational: Srinivas Krueger MD Urinalysis,Microon 1 ----- Normal [facility] Comment on above: Performed By: #### U MICAO, PTT, CDP, HCG, PT, UA, CP #### [address] [place], [place] [id number] Manager Occupational: Srinivas Krueger MD Bacteria TRACE Abnormal NONE [facility] Comment on above: Performed By: #### U MICAO, PTT, CDP, HCG, PT, UA, CP #### [facility] [address] [place] [address] Manager Occupational: Srinivas Krueger MD Epithelial cells LM Ql (Urine sed) 2 TO 5 Normal 0-25 [facility] Comment on above: Performed By: #### U MICAO, PTT, CDP, HCG, PT, UA, CP #### [facility] [address] [place], [place] [phone] Manager Occupational: Srinivas Krueger MD Urine RBC's 5 TO 10 Normal 0-2 [facility] Comment on above: Performed By: #### U MICAO, PTT, CDP, HCG, PT, UA, CP #### [address] [place], [place] [id number] Manager Occupational: Srinivas Krueger MD Urine WBC's 0 TO 2 Normal 0-5 [facility] Comment on above: Performed By: #### U MICAO, PTT, CDP, HCG, PT, UA, CP #### [address] [place] [address] Manager Occupational: Srinivas Krueger MD Amorphous sediment LM Ql (Urine sed) NOT REPORTED Normal [facility] Comment on above: Performed By: #### U MICAO, PTT, CDP, HCG, PT, UA, CP #### [address] [place], [facility] Manager Occupational: Srinivas Krueger MD Casts NOT REPORTED Normal [facility] Comment on above: Performed By: #### U MICAO, PTT, CDP, HCG, PT, UA, CP #### [address] [place] [address] Manager Occupational: Srinivas Krueger MD Crystals LM Nom (Urine sed) NOT REPORTED Normal [facility] Comment on above: Performed By: #### U MICAO, PTT, CDP, HCG, PT, UA, CP #### [facility] [address] [place], [place] [phone] Manager Occupational: Srinivas Krueger MD Epithelial, Renal NOT REPORTED Normal 0 [facility] Comment on above: Performed By: #### U MICAO, PTT, CDP, HCG, PT, UA, CP #### [facility] [address] [place] [address] [place] [address] Manager Occupational: Srinivas Krueger MD Mucus Strands NOT REPORTED Normal NONE [facility] Comment on above: Performed By: #### U MICAO, PTT, CDP, HCG, PT, UA, CP #### [address] [place] [address] Manager Occupational: Srinivas Krueger MD Other Observations NOT REPORTED Normal NREQ [facility] Comment on above: Performed By: #### U MICAO, PTT, CDP, HCG, PT, UA, CP #### [address] [place] [address] Manager Occupational: Srinivas Krueger MD Trichomonas NOT REPORTED Normal NONE [facility] Comment on above: Performed By: #### U MICAO, PTT, CDP, HCG, PT, UA, CP #### [address] [place], [place] [id number] Manager Occupational: Srinivas Krueger MD Yeast NOT REPORTED Normal NONE [facility] Comment on above: Performed By: #### U MICAO, PTT, CDP, HCG, PT, UA, CP #### [facility] [address] [place] [address] [place] [place], [place] [phone] Manager Occupational: Srinivas Krueger MD [id number] 10-13-2019 SARS-CoV-2 Not Detected Normal Not Detected [facility] Comment on above: Result Comment: (NOT E) This test was developed and its performance characteristics determined by [employer]. This test has not been FDA cleared or approved. This test has been authorized by FDA under an Emergency Use Authorization (EUA). This test is only authorized for the duration of time the declaration that circumstances exist justifying the authorization of the emergency use of in vitro diagnostic tests for detection of SARS-CoV-2 virus and/or diagnosis of COVID-19 infection under section 564(b)(1) of the Act, 21 U.S.C. 360bbb-3(b)(1), unless the authorization is terminated or revoked sooner. When diagnostic testing is negative, the possibility of a false negative result should be considered in the context of a patient's recent exposures and the presence of clinical signs and symptoms consistent with COVID-19. An individual without symptoms of COVID-19 and who is not shedding SARS-CoV-2 virus would expect to have a negative (not detected) result in this assay. Performed At: [facility] [address] [facility] [place] [id number] Gloria Holland MD Ph:[phone] Performed By: #### A COV #### [facility] [address], [place] [id number] Manager Occupational: Wesley Fuentes MD Clinical [facility]2017 POS Invalid Interpretation Code [facility] Work Phone: Office Visit: Cosmetic Consu lt, Rm: 2on 08-09-2017 NEGATED: Highlighted rowDocumentation of current medications (procedure) Done Invalid Interpretation Code [facility] Work Phone: NEGATED: Highlighted rowTobacco smoking status NHIS Tobacco smoking status NHIS Invalid Interpretation Code [facility] Work Phone: Clinical Lists Update: Prelo ad Extendedon 08-02-2017 Documentation of current medications (procedure) T Invalid Interpretation Code [facility] Work Phone: Florin 01-24-2017 [facility] ----ALYSSA WHITAKER ([id number]) 1975 [facility] Time Provider Iyejrcpmzx19/24/17 DIO REYNOLDS During your visit today, we recorded the following information about you:[facility] 01/24/2017 8:56 AM SignedShe wants to discuss options of doing (redoing) the butt lift. Asked forDenise since I guess that is who was in clinic last time she was here. I amsending to the pool and to juan manuel.09/29/16 OPERATION: Bilateral revision breast reduction/mastopexy.Liposuct ion of the anterior and posterior thorax with fat transfer to Buttocksbilaterally.?Juan Manuel Snyder, RN, RN 01/24/2017 6:10 PM SignedI spoke to the patient and let her know that Dr Reynolds feels he has taken asmuch fat as he can without giving her contour defects from harvesting the fat.He understands that she would like more volume in the buttocks but he does notthink she has enough fat to give her the result she is looking for.She would like to review the photos.I have sent the auth for realease of information so I can send the photos toher.Yina Torrez As of Date: 01/24/2017(No Known Allergies)Date Reviewed: 12/28/2016Reviewed by: Katherine [place] Ma - Fully AssessedReason for Visit: options about redoing the butt lift [Other]Problem List As Of Date: 01/24/2017(None) Status:Closed by AD HENDRICKSON on 01/24/17 [facility] [place] 01-11-2017 YURIN Telephone (PLASMN) ----ALYSS[facility] WHITAKER ([id number]) 1975 [facility] Dlnfmzbkbv03/11/17 DIO REYNOLDS During your visit today, we recorded the following information about you:Ad Fonseca 01/11/2017 3:39 PM SignedYou were going to compare pictures and get back to the pt in regards to anymore surgery.Juan Manuel Snyder, RN, RN 01/18/2017 5:32 PM Signedleft message for patient to call the office to discussYina Torrez As of Date: 01/11/2017(No Known Allergies)Date Reviewed: 12/28/2016Reviewed by: Katherine Bella Ma - Fully AssessedReason for Visit: was a decision made as to next phase of surgery if any [Other]Problem List As Of Date: 01/11/2017(None) Status:Closed by AD HENDRICKSON on 01/11/17 [facility] CNOVon 12-28-2016 CNOV Office Visit (PLASMN) ----ALYSSA WHITAKER ([id number]) 1975 [facility] Time Provider Department12/28/16 1:30 PM DIO REYNOLDS During your visit today, we recorded the following information about you: Pulse Blood pressure Weight Height 73/minute 122/84 55.6 kg 1.575 Vipin Reynolds MD 12/29/2016 1:01 PM SignedJennifer 41 year old female presents today for a post op visit 3 months s/pBilateral revision breast reduction/mastopexy. Liposuction of the anteriorand posterior thorax with fat transfer to Buttocks bilaterally. Unhappy withbuttock fat grafts, would like her buttocks to be more full. She is very thinand has very few places to harvest fat. Is happy with breast reduction.BP 122/84 Pulse 73 Ht 157.5 cm (5' 2ANDquot;) Wt 55.6 kg (122 lb 9.6 oz) BMI 22.42 kg/y4UEXVWCXYCMk Known AllergiesNo current outpatient prescriptions on file prior to visit.No current facility-administered medications on file prior to visit.Dorcas Deuce Loren wants her buttocks to be bigger. Overall even looking anteriorly beforeand after pictures, she got a significant improvement of her overall contour.She did of 250 cc injected per side. Admittedly this is not an awful lothowever she does not have that much to inject. I do believe her shape overallis very good. If she wants to go through more surgery we can potentially dothis however I'm unsure how much fat I we can get available. I do not believeis reasonable to ask her to gain a significant amount of weight just like andsuction out injected back in the buttocksTherefore, I will take pictures today, reviewed these pictures and decide if Ifeel it reasonable or not More fat. I discussed with her even at adiposetissue grafting for breast cases, multiple procedures often are needed.[place] Provider: SELF [200]Allergies As of Date: 12/28/2016(No Known Allergies)Date Reviewed: 12/28/2016Reviewed by: Katherine Bella Ma - Fully AssessedReason for Visit: Post Op [174]Primary Visit Diagnosis:Post-operative state [Z98.890]Problem List As Of Date: 12/28/2016(None)Medications Discontinued During This Encounter docusate sodium (COLACE) 100 mg caps* 40 c* 0 09/29/2016 12/28/2016 Class: Print RX Route: ORAL Sig: Take 1 capsule by mouth twice daily. Patient not taking: Reported on 10/26/2016 Disc: Reason for discontinue is not on file. oxyCODONE-acetaminophen (PERCOCET) 5* 40 t* 0 09/29/2016 12/28/2016 Class: Print RX Route: ORAL Sig: Take 1 tablet by mouth every 4 hours as needed. Patient not taking: Reported on 10/26/2016 Disc: Reason for discontinue is not on file. Status:Closed by DIO REYNOLDS MD on 12/29/16 Normal [facility] PROGRESSon 12-28-2016 PROGRESS HNO ID: [id number] thor: Laney Clancy PhotoService: (none)Author Type: (none)Type: Progress NotesFiled: 12/28/2016 2:23 PMNote Text:[id number] OF PHOTOS: December 28, 2016TAKEN WITH LENS:7ft / 85mm x5 [id number] / 70mm H x8 ABDOMEN. FROM BELOW BRA LINE TO BELOW PUBIC AREAPOSES:PHOTO INFO:DIAGNOSIS: MASTOPEXY/SUCTION LYPORELEASE: NO AUTHORIZATION GIVEN BY PATIENT TO USE PHOTOS FORMASTOPEXY/SUCTION LYPOPatrictravis Clancy Photo Normal [facility] PROGRESS HNO ID: [id number] thor: Dio Cruzervice: (none)Author Type: PhysicianType: Progress NotesFiled: 12/29/2016 1:01 PMNote Text:Alyssa 41 year old female presents today for a post op visit 3 monthss/p Bilateral revision breast reduction/mastopexy. Liposuction of theanterior and posterior thorax with fat transfer to Buttocks bilaterally.Unhappy with buttock fat grafts, would like her buttocks to be more full.She is very thin and has very few places to harvest fat. Is happy withbreast reduction.BP 122/84 Pulse 73 Ht 157.5 cm (5' 2 ) Wt 55.6 kg (122 lb 9.6 oz) BMI 22.42 kg/i2XNHFUTKSVRu Known AllergiesNo current outpatient prescriptions on file prior to visit.No current facility-administered medications on file prior to visit.Loren Najera wants her buttocks to be bigger. Overall even looking anteriorlybefore and after pictures, she got a significant improvement of heroverall contour.She did of 250 cc injected per side. Admittedly this is not an awful lothowever she does not have that much to inject. I do believe her shapeoverall is very good. If she wants to go through more surgery we canpotentially do this however I'm unsure how much fat I we can getavailable. I do not believe is reasonable to ask her to gain asignificant amount of weight just like and suction out injected back inthe buttocksTherefore, I will take pictures today, reviewed these pictures and decideif I feel it reasonable or not More fat. I discussed with her even atadipose tissue grafting for breast cases, multiple procedures often areneeded.Dio Reynolds MD [facility] CNOVon 10-26-2016 CNOV Office Visit (PLASMN) ----SHERMANALYSSA ([id number]) 1975 [facility] Time Provider Department10/26/16 3:45 PM DIO REYNOLDS During your visit today, we recorded the following information about you: Pulse Blood pressure Weight Height 80/minute 120/81 54.7 kg 1.575 Vipin Reynolds MD 11/01/2016 5:13 PM SignedPlastic Surgery Follow Up NoteAlyssa Jacintomora is here for follow up of: Bilateral revision breastreduction/mastopexy. Liposuction of the anterior and posterior thorax with fattransfer to Buttocks bilaterally on 09.29.16;Last visit was 10/05/16.HPI:Still not happy with the lack of fullness in her buttocks; can still fit inpants prior to fat transferHasn't been laying on her back, sleeps on her sideMeds and allergies reviewed in EPIC.Pain is 0 out of 10Objective:BP 120/81 Pulse 80 Ht 157.5 cm (5' 2ANDquot;) Wt 54.7 kg (120 lb 9.6 oz) BMI 22.06 kg/m2PE:Healing wellBreast incisions are dry and intact with no s/s infectionSlight ecchymoses on right breastButtocks- slight edemaAssessment:Expected post operative courseDoing wellBreast incisions c/d/i, no s/s infectionPlan:Follow up in 1-2 monthsPost-op photos taken todayThe patient was seen with Kaci Vyas, RNPatient is still unhappy with the lack of significant volume of her Botox.Overall the shape is much better. Her lower back and hips are much better.She has a good result from liposuction. I discussed with her that I qpabldak434 cc of fat into each Botox but she did not have much donor site. Reevaluatein a few months to see how she doesRaymond Val Reynolds Provider: SELF [200]Allergies As of Date: 10/26/2016(No Known Allergies)Date Reviewed: 10/26/2016Reviewed by: Steffi Cooper MA - Fully AssessedReason for Visit: Post Op [174]Primary Visit Diagnosis:Post-operative state [Z98.890] Other Visit Diagnosis:Other plastic surgery for unacceptable cosmetic appearance [Z41.1]Prescriptions as of 10/26/2016 Sig: OXYCODONE-ACETAMINOPHEN 5 MG-* Take 1 tablet by mouth every * Patient not taking: Reported on 10/26/2016 DOCUSATE SODIUM 100 MG CAPSULE Take 1 capsule by mouth twice* Patient not taking: Reported on 10/26/2016Problem List As Of Date: 10/26/2016(None) Status:Closed by DIO REYNOLDS MD on 11/01/16 [facility] PROGRESSon 10-26-2016 PROGRESS HNO ID: [id number] thor: Laney Clancy PhotoService: (none)Author Type: (none)Type: Progress NotesFiled: 10/26/2016 4:42 PMNote Text:[id number] OF PHOTOS: October 26, 2016TAKEN WITH LENS:7ft / 85mm x5 [id number] / 70mm H x8 ABDOMEN. FROM BELOW BRA LINE TO BELOW PUBIC AREAPOSES:PHOTO INFO:DIAGNOSIS: MASTOPEXY/SUCTION LYPORELEASE: NO AUTHORIZATION GIVEN BY PATIENT TO USE PHOTOS FORMASTOPEXY/SUCTION LYPOPatricrtavis Clancy Photo Normal [facility] PROGRESS HNO ID: [id number] thor: Dio Cruzervice: (none)Author Type: PhysicianType: Progress NotesFiled: 11/01/2016 5:13 PMNote Text:Plastic Surgery Follow Up NoteAlyssa Whitaker is here for follow up of: Bilateral revision breastreduction/mastopexy. Liposuction of the anterior and posterior thoraxwith fat transfer to Buttocks bilaterally on 09.29.16;Last visit was 10/05/16.HPI:Still not happy with the lack of fullness in her buttocks; can still fitin pants prior to fat transferHasn't been laying on her back, sleeps on her sideMeds and allergies reviewed in EPIC.Pain is 0 out of 10Objective:BP 120/81 Pulse 80 Ht 157.5 cm (5' 2 ) Wt 54.7 kg (120 lb 9.6 oz) BMI 22.06 kg/m2PE:Healing wellBreast incisions are dry and intact with no s/s infectionSlight ecchymoses on right breastButtocks- slight edemaAssessment:Expected post operative courseDoing wellBreast incisions c/d/i, no s/s infectionPlan:Follow up in 1-2 monthsPost-op photos taken todayThe patient was seen with Kaci Vyas, RNPatient is still unhappy with the lack of significant volume of her Botox. Overall the shape is much better. Her lower back and hips are muchbetter. She has a good result from liposuction. I discussed with herthat I injected 250 cc of fat into each Botox but she did not have muchdonor site. Reevaluate in a few months to see how she doesRaymfederico Reynolds MD [facility] PROGRESSon 10-06-2016 PROGRESS HNO ID: [id number] thor: Dio Bernsteinice: (none)Author Type: PhysicianType: Progress NotesFiled: 10/06/2016 8:00 AMNote Text:Patient is status post significant liposuction of her abdomen and flanks,back with fat transfer back to 50 cc per side. The patient doesn't see alarge difference between the buttock size which is understandable for theamount of fat that she had available to reinject.She is overall quite thinFrom a wound healing standpoint and her overall aesthetic standpoint shelooks very good.Structures were given. I'll see her in approximately 3 weeks or sooner asneeded.Dio Reynolds MD [facility] CNOVon 10-05-2016 CNOV Office Visit (PLASMN) ----ALYSSA WHITAKER ([id number]) 1975 FDate Time Provider Department10/05/16 1:30 PM DIO REYNOLDS During your visit today, we recorded the following information about you: Temperature Pulse Blood pressure 97.7 degrees 79/minute 107/71Raymfederico Reynolds MD 10/06/2016 8:00 AM SignedPatient is status post significant liposuction of her abdomen and flanks, backwith fat transfer back to 50 cc per side. The patient doesn't see a largedifference between the buttock size which is understandable for the amount offat that she had available to reinject.She is overall quite thinFrom a wound healing standpoint and her overall aesthetic standpoint she looksvery good.Structures were given. I'll see her in approximately 3 weeks or sooner asneeded.Dio ReynoldsMISSOURI [facility]TA MEDICAL CENTEReferrstate reform school for boys Provider: SELF [200]Allergies As of Date: 10/05/2016(No Known Allergies)Date Reviewed: 10/05/2016Reviewed by: Tami Bo MA - Fully AssessedReason for Visit: Post Op [174]Primary Visit Diagnosis:Other plastic surgery for unacceptable cosmetic appearance [Z41.1]Prescriptions as of 10/05/2016 Sig: CEPHALEXIN 500 MG CAPSULE Take 1 capsule by mouth four * OXYCODONE-ACETAMINOPHEN 5 MG-* Take 1 tablet by mouth every * DOCUSATE SODIUM 100 MG CAPSULE Take 1 capsule by mouth twice*Problem List As Of Date: 10/05/2016(None) Status:Closed by DIO REYNOLDS MD on 10/06/16 [facility] ANES Jonathan 09-29-2016 ANES POST HNO ID: [id number] thor: Lacho Ren: (none)Author Type: AnesthesiologistType: Anesthesia PostOpFiled: 09/29/2016 4:40 PMNote Text:POST ANESTHESIA EVALUATION NOTESERVICE DATE: 09/29/2016SERVICE TIME: 4:39 PMDOB: 1975Vitals: 09/29/1714Temp: 36.8 ?C (98.2 ?F) 36.8 ?C (98.2 ?F) 09/29/17142BP: 133/80 118/64 114/66 118/69 09/29/17142Pulse: 66 66 71 81 09/29/17142Resp: 16 16 14 16 09/29/17142SpO2: 100% 100% 100% 100%Validated Vital Signs: YesNo apparent anesthetic complications. The patient is appropriatelyhydrated with stable respiratory and cardiovascular status. Patient hassafe and adequate airway control. The patient has appropriate pain reliefand no significant post operative nausea or vomiting. The patient hasachieved baseline mental status.Further assessment by Anesthesia Service: NoneOther Remarks:SIGNATURE: Lacho Alvarez MD PATIENT NAME: Alyssa PayneraDATE: September 29, 2016 : 4:39 PM PAGER/CONTACT #: [phone] [facility] OPERATIVE NOon 09-29-2016 OPERATIVE NO HNO ID: [id number] thor: Dio Cruzervice: Plastic SurgeryAuthor Type: PhysicianType: Operative ReportFiled: 10/06/2016 8:49 AMNote Text:[facility] [address] [place]OPERATIVE REPORTNAME: ALYSSA WHITAKER [facility] #: [id number]: 09/29/2016 AGE: 40SURGEON 1: Dio Reynolds M.D.ACCOUNT ADVISOR 1: Seun Patel M.D.OPERATION: Bilateral revision breast reduction/mastopexy. Liposuction ofthe anterior and posterior thorax with fat transfer to Buttocksbilaterally.ANESTHES IA: General.PREOPERATIVE DIAGNOSIS:1. Previous breast reduction desiring more of a reduction with mastopexy.2. Lipodystrophy with buttock involution and ptosis.POSTOPERATIVE DIAGNOSIS:1. Previous breast reduction desiring more of a reduction with mastopexy.2. Lipodystrophy with buttock involution and ptosis.OPERATIVE INDICATIONS: The patient is a 40-year-old female ,who has had a prior breast [place]. The patient isunhappy with her result. She feels as if there was some more asymmetrieswith the right being larger than the left. To my eye and examination,they were fairly close, however. The patient also had some involutionafter weight loss from . She also had some involution andptosis of the gluteal regions. The patient desired a iyer buttock aswell as revision of her reduction. I had a long discussion with her onseveral occasions regarding the risks, benefits, alternatives, and ofcourse expectations. Fat grafting to the buttocks was discussed atlength. This patient is not very heavy and the amount of injection wouldbe based on the amount harvested as well as recipient bed. With that,the patient stated understanding and chose to proceed.OPERATIVE FINDINGS: Much improved contour of the abdomen, flanks, andgluteal region with much improved contour of the breasts bilaterally.OPERATIVE PROCEDURE: She was marked in the standing positionpreoperatively. Her breasts were marked as well as the abdomen, back,thighs, and the gluteal region. She was then taken to the operating roomand underwent anesthesia without any difficulty. She was prepped anddraped in usual sterile fashion. We started on the breasts. First, Itumesced the abdomen with approximately a 1 L of modified Tuttle tumescentsolution. I then confirmed my penn of the prior Hodge pattern, which wasperformed outside. The nipple to full distance here was quite long. Thiswas over 11 cm and resected based on preoperative markings severalcentimeters to decrease the nipple to fold distance. I also performed anexcision of the skin in the vertical dimension as well to narrow thebreast. It was very tuned into the prior likely inferior pedicle typetechnique. With that, the incisions were made and I resected some medialand lateral breast laterally, I elevated the skin flap and resected afair amount of lateral breast tissue on both sides. The central portionand the periareolar portion were de-epithelialized. I used a 42-mm cookiecutter around the areola. The hemostasis was excellent and I then placedMarcaine in the chest wall and in the incisions bilaterally. I washedout these and hemostasis was excellent. Despite the resection, thenipple-areolar complexes had no compromise whatsoever. The skin flapswere only elevated enough as much as needed to be closed. I resected 100g from the right side and approximately 80 g from the left side. Iresected slightly more skin on the right than the left, as this was morepseudoptotic laterally. The wounds were then closed with multipleinterrupted deep dermal sutures and a V-Loc in the inferior portionmultiple interrupted deep dermal and running Biosyn sutures on thevertical limb and multiple radial sutures around the nipple-areolarcomplexes. The patient had been sat up to evaluate symmetry andevaluation of this was much improved breast reduction/mastopexy. Thesewounds were then cleaned and dressed and attention was turned to theabdomen. Small periumbilical incisions were made and the liposuction wasperformed for approximately a 1 L of total aspirate of the anteriorabdomen and anterior flanks. I used the Revolve system. This patient didhave a fair amount of laxity to the abdomen as well as diastasis recti.The patient did not want an abdominoplasty at this point and I discussedwith her the potential for making the skin worse. Therefore, I did resectas much fat as possible without over-resecting and causing the skin tonot contract. Patient's body mass index is only 23 and therefore therewas a limited amount of fat that was aspirated. After this, the patientwas turned over, re-prepped and draped, and then another L of tumescentsolution was placed in the upper back and the lower back and the flanks.Liposuction was then performed in the upper back above and below thefolds, breaking up the fold without suction, and then liposuctioning theflanks. Each flank gave me approximately 300 mL of aspirate. The Revolvesystem was used to purify and dispense the fat. Once the fat was thenplaced into syringes, Garrido type injections were used to inject backinto the premarked area of the Buttock. These were not placed in themusculature whatsoever. These were placed in the more superficial tissuesto avoid embolism. It had being said, the patient did have a fair amountof compliance to the skin and could take a fair amount of volume. Iinjected throughout the buttocks, but mostly the upper buttocks,approximately 250 mL of fat per buttock. The wounds were then closed andthe patient was transferred to recovery in good condition.I performed the entire case with the assistance of Dr. Seun Patel.START TIME: Approximately 1200.END TIME: Approximately 03:00 p.m.ESTIMATED BLOOD LOSS: For the entire case was approximately 100 mL.DRAINS: No drains used.SPECIMENS: Sent were right and left breast tissue.COMPLICATIONS: No complications noted.COUNTS: All counts were correct.Dio Reynolds M.D.RI:[id number] #: [id number]: 09/29/2016 16:13:59 cc: [facility] PT EDon 09-29-2016 PT ED HNO ID: [id number] thor: Mark Jeffery (Rn) LATOYA Barlowervice: (none)Author Type: Registered NurseType: Patient EducationFiled: 09/29/2016 5:59 PMNote Text:PATIENT EDUCATIONThe following was evaluated:Motivation To Learn: EagerInterestedFamily/Signif icant Other Support: High - Very involved in pt careCognitive Ability: Alert and orientedPatient Learns Best By: Individual InstructionWritten Instruction - Hand-outsVerbal InstructionThe following Influencing Factors were barriers to this education session:NoneThe Following Physical Limitations Were Barriers To This EducationSession:NoneInstruc tion Provided To: Patient and family memberProcedure/Diagnosis: bilateral mastopexy, liposuction, fat grafting tobuttocksLearning Topic: Pain ControlActivity RestrictionsWound CareMethod of Instruction: Verbal and WrittenPatient Evaluation: Verbalizes understandingFollow Up Plan: Follow-up visit scheduled for check-up and learningreinforcementSupplem ental Material Given: Written MaterialInstructed by: Gabrielle Barlow RN , in Department A60. [facility] SURGICAL PATHOLOGYon 017 SURGICAL PATHOLOGY [facility]: [id number] Physician: DIO REYNOLDS M.D. (A60) FINAL DIAGNOSISRight and left breast tissue, bilateral reduction mammoplasty (A, B) -Unremarkable skin and underlying breast parenchyma. JRR/ayleen 10/03/2016J. Erasmo Case M.D.(Electronic Signature) SPECIME N SUBMITTEDA: RIGHT BREAST TISSUE B: LEFT BREAST TISSUE CLINICAL DATAENCOUNTER FOR COSMETIC PROCEDUREGROSS DESCRIPTIONA. The specimen is received in formalin and consists of multiple fragmentsof fibrofatty breast tissue and skin, ranging in size from 3 to 10 cm ingreatest dimension and weighing 92 grams. The skin is unremarkable. Breasttissue is fatty. Compressor Repairer sections are submitted as follows: A1-A2skin and breast tissue. B. The specimen is received in formalin and consists of multiple fragmentsof fibrofatty breast tissue and skin, ranging in size from 9.5 to 15.5 cmin greatest dimension and weighing 81.8 grams. The skin is unremarkable.Breast tissue is fatty. Compressor Repairer sections are submitted as follows:B1-B2 skin and breast tissue.ANNY/jean 09/30/2016 Gross examination performed at [facility], [facility] [place] [address] of Report: 10/03/2016Date of Procedure: 09/29/2016Date of Receipt: 09/29/2016Submitted by: DIO REYNOLDS M.D. (A60)Location: [id number] interpretation performed at [facility], [address] [facility] [address]. Normal [facility] Comment on above: Performed By: #### P ATHS ####[facility] [address] [place], [place] [phone] Vital Signs Date Time Vital Sign Value Performing Clinician Facility NEGATED: Highlighted [id number] 14:23-0400 BMI (Body Mass Index) 23.31 kg/m2 Silvia Handy RN [facility] Work Phone: NEGATED: Highlighted [id number] 14:23-0400 BP Diastolic 82 mm[Hg] Silvia Handy RN [facility] Work Phone: NEGATED: Highlighted [id number] 14:23-0400 BP Systolic 120 mm[Hg] Silvia Handy RN [facility] Work Phone: NEGATED: Highlighted [id number] 14:23-0400 Height 157.48 cm Silvia Handy RN [facility] Work Phone: NEGATED: Highlighted [id number] 14:23-0400 Height 157 cm Silvia Handy RN [facility] Work Phone: NEGATED: Highlighted [id number] 14:23-0400 Pulse (Heart Rate) 80 /min Silvia Handy RN [facility] Work Phone: NEGATED: Highlighted [id number] 14:23-0400 Weight 57.61 kg Silvia Handy RN [facility] Work Phone: NEGATED: Highlighted [id number] 14:23-0400 Weight 58 kg Silvia Handy RN [facility] Work Phone: Encounters Encounter Date Encounter Type Care Provider Facility Start: 05-22-2023 End: 05-23-2023 ambulatory KOKO RIVERA [facility] Start: 01-26-2022 End: 01-27-[address] REBECCA KINGSTON Facility:[facility] Start: 12-07-2021 End: 12-07-[address] REBECCA KINGSTON Facility:[facility] Start: 01-12-2021 End: 01-13-2021 amb[facility] Start: 01-12-2021 End: 01-12-2021 Subsequent hospital visit by physician Srinivas Loya MD Work Phone: [facility] Start: 10-10-2019 End: 10-10-2019 Patient encounter procedure FESTUS ALMARAZ [facility] Start: 10-09-2019 End: 10-09-2019 Subsequent hospital visit by physician [facility]rinivas [facility]oya [facility] Comment on above: Cough; Exposure to COVID-19 virus; Loss of taste; Loss of smell Start: 08-09-2017 End: 08-09-2017 Patient encounter procedure Xander Roblero MD Work Phone: [facility] Work Phone: Start: 12-28-2016 End: 12-28-2016 Ambulatory [facility]IO [facility] Start: 10-26-2016 End: 10-26-2016 Ambulatory DIO [facility] Start: 10-05-2016 End: 10-06-2016 Ambulatory DIO [facility] Start: 09-29-2016 End: 09-29-2016 Ambulatory DIO [facility] Procedures Date Procedure Procedure Detail Performing Clinician Start: 01-12-2021 Ecg routine ecg w/le ast 12 lds w/i&r Stephen Amanda MD Work Phone: Start: 01-12-2021 Comprehensive metabo lic panel Srinivas Loya MD Work Phone: Start: 01-12-2021 Urinalysis microscopic only Srinivas Loya MD Work Phone: Start: 01-12-2021 Urnls dip stick/tabl et rgnt auto w/o microscopy Srinivas Loya MD Work Phone: Start: 10-10-2019 COVID-19 AMBULATORY STA [facility] MICHELLEKO Start: 08-09-2017 End: 08-09-2017 Blood pressure within normal parameters - no follow-up required Xander Roblero MD Work Phone: Start: 08-09-2017 End: 08-09-2017 BMI documented within normal parameters - no follow-up plan is required Xander Roblero MD Work Phone: Start: 08-09-2017 End: 08-09-2017 Current medications documented Xander Roblero MD Work Phone: Start: 08-09-2017 End: 08-09-2017 Pain assessment documented as negative - follow-up not required Xander Roblero MD Work Phone: Start: 08-09-2017 End: 08-09-2017 Tobacco non-user Xander Roblero MD Work Phone: Plan of Treatment Date Care Activity Detail Author Start: 01-20-2021 DTaP/Tdap/Td vaccine (2 - Td or Tdap) DTaP/Tdap/Td vaccine (2 - Td or Tdap) [facility] Start: 12-16-2020 Screening for malign ant neoplasm of colon Colon cancer screen colonoscopy [facility] Work Phone: Start: 12-02-2020 Influenza vaccination Flu vaccine (# 1) [facility] Work Phone: Start: 12-03-2019 Influenza vaccination Flu vaccine (# 1) [place], [place] Start: 08-09-2017 End: 08-09-2017 Appointment Appointment [facility] Work Phone: Start: 2015 Lipid panel Lipid screen [place], [place] Start: 12-16-2005 Screening for malign ant neoplasm of cervix [facility] [employer] Phone: Start: 12-16-1996 Screening for malign ant neoplasm of cervix [place], [place] Start: 12-16-1994 DTaP/Tdap/Td vaccine (1 - Tdap) DTaP/Tdap/Td vaccine (1 - Tdap) [place], [place] Start: 12-16-1990 HIV screening [facility] [place], [place] Start: 1987 COVID-19 Vaccine (1) COVID-19 Vaccin e (1) [facility] [employer] Phone: Start: 12-16-1981 Pneumococcal 0-64 ye ars Vaccine (1 of 1 - PPSV23) Pneumococcal 0-64 years Vaccine (1 of 1 - PPSV23) [place], [place] Start: 12-16-1981 Pneumococcal 0-64 ye ars Vaccine (1 of 2 - PPSV23) Pneumococcal 0-64 years Vaccine (1 of 2 - PPSV23) [facility] [employer] Phone: Start: 1975 Hepatitis C screening Hepatitis C sc reen [facility] [employer] Phone: End: 10-09-2019 COVID-19 Ambulatory COVID-19 Ambulatory Lab Routine Cough Exposure to COVID-19 virus Loss of taste Loss of smell 1 Occurrences starting 10/09/2019 until 10/09/2019 [place], [place] Comment on above: 1 Occurrences starti ng 10/09/2019 until 10/09/2019 COVID-19 Ambulatory COVID-19 Amb ulatory Lab Routine Cough Exposure to COVID-19 virus Loss of taste Loss of smell 10/09/2019 11:24 PM EDT [place], [place] Immunizations Immunization Date Immunization Notes Care Provider Skyla ceja 01-30-2019 influenza virus vaccine, unspecified formulation Srinivas [place] 02-01-2018 influenza virus vaccine, unspecified formulation [place], [place] No information available. Silvia Handy RN [facility] Work Phone: Payers Date Payer Category Payer Unknown [facility] xxxxxxxxx 2018-Present Indemnity xxxxxxxxx [id number] 2016 Medicaid [id number] 2016 Medicaid MEDICAID [facility] DEPT OF JOB xxxxxxxxxxxx 2016-Present [phone] [address] [place] [address] xxxxxxxxxxxx [id number] 1975 Unknown [id number] 1975 Unknown [id number] 1975 Unknown [id number] 1959 Self-pay 1959 Unknown [id number] Social History Date Type Detail Facility Start: 10-09-2019 Tobacco smoking status NHIS [place] Start: 1975 Sex Assigned At Not on file M [place], [place] Exposure to SARS-CoV-2 (event) Unable to assess [place], [place] Start: 10-09-2019 Tobacco use and exposure Never used Chatalog NEGATED: Highlighted rowStart: 08-09-2017 End: 08-09-2017 Alcohol intake ALCOHOL COMM 1-2x/week [facility] Work Phone: NEGATED: Highlighted rowStart: 08-09-2017 End: 08-09-2017 Alcohol use ETOH USE Yes [facility] Work Phone: NEGATED: Highlighted rowStart: 08-09-2017 End: 08-09-2017 Details of drug misuse behavior DRUG USE No [facility] Work Phone: NEGATED: Highlighted rowStart: 08-09-2017 End: 08-09-2017 Assertion Former smoker [facility] Work Phone: Instructions Instruction Description Start Date Completed Advance Directives No Advanced Directives Records FoundDocuments on File Type Date Recorded Patient Compressor Repairer Expl anation Advance Directives and Living Will Power of Completions Manager Documents on File Type Date Recorded Patient Compressor Repairer Expl anation ACP-Advance Directive ACP-Power of Completions Manager Assessments Diagnosis Cough Exposure to COVID-19 virus Loss of taste Disturbances of sensation of smell and taste Loss of smell Disturbances of sensation of smell and taste Review of System There may be information available, but it has not been provided by the sender. Family History There may be information available, but it has not been provided by the sender.No Family History Records FoundNo Family History Records FoundNo Family History Records FoundNo Family History Records FoundNo Family History Records Found Summary Purpose Additional Source Comments INFORMATION SOURCE (unrecogn ized section and content) DATE CREATED AUTHOR 09/26/2017 [facility] DATE CREATED AUTHOR AUTHOR'S ORGANIZ ATION 10/25/2019 [facility] DATE CREATED AUTHOR AUTHOR'S ORGANIZ ATION 01/14/2021 [facility] DATE CREATED AUTHOR AUTHOR'S ORGANIZ ATION 02/01/2022 [facility] DATE CREATED AUTHOR AUTHOR'S ORGANIZ ATION 05/23/2023 [facility] FOR RECORDS PERTAINING TO PATIENTS WHO ARE OR HAVE BEEN ENROLLED IN A CHEMICAL DEPENDENCY/SUBSTANCEABUSE PROGRAM, SOME INFORMATION MAY BE OMITTED. This clinical summary was aggregated from multiple sources. Caution should be exercised in using it in the provision of clinical care. This summary normalizes information from multiple sources, and as a consequence, information in this document may materially change the coding, format and clinical context of patient data. In addition, data may be omitted in some cases. CLINICAL DECISIONS SHOULD BE BASED ON THE PRIMARY CLINICAL RECORDS. [employer] [facility]. provides no warranty or guarantee of the accuracy or completeness of information in this document.
== END 2024-03-13 12:52 | disposition home or self-care (01) ==
LOC: MAMMO 12:53
PROVIDERS: PCP Family Medicine
DX: Z12.31 Encounter for screening mammogram for malignant neoplasm of breast (principal); Z80.3 Family history of malignant neoplasm of breast
CPT/HCPCS: 77063; 77067

== ENCOUNTER 2025-03-14 13:29 | Outpatient (OUT) | payer BC, SELFPAY ==
--- OUTSIDE RECORDS SUMMARY | 2025-03-14 13:32 | XMS_ITS | CCD ---
Author Organization [facility] CliniSyoh Care Team Providers Care Scrap Stripper Hand Name Role Phone Xander Roblero MD Unavailable [phone] ISAKOV, KATIUSKA Unavailable Unavailable ISAKOV, KATIUSKA Unavailable Unavailable ISAKOV, KATIUSKA Unavailable Unavailable ISAKOV, KATIUSKA Unavailable Unavailable ISAKOV, KATIUSKA Unavailable Unavailable ISAKOV, KATIUSKA Unavailable Unavailable FESTUS ALMARAZ Referring Unavailable SRINIVAS LOYA Primary Care Unavailable Srinivas Loya Primary Care Provider [phone] Srinivas Loya MD Primary Care Provider [phone] SRINIVAS LOYA Primary Care Unavailable DEFSRINIVAS WISDOM Primary Care Unavailable KARASIK, DR FERNANDEZ Admitting Unavailable KARASIK, DR FERNANDEZ Attending Unavailable KARASIK, DR FERNANDEZ Consulting Unavailable MISC, DR DIAZ Primary Care Unavailable HULL, DR SRINIVAS Day Consulting Unavailable KARASIK, DR FERNANDEZ Attending Unavailable KARASIK, DR FERNANDEZ Consulting Unavailable MISC, DR DIAZ Primary Care Unavailable KARASIK, DR FERNANDEZ Admitting Unavailable BRUEKOKO Referring Unavailable SRINIVAS LOYA Primary Care Unavailable Srinivas Loya MD Primary Care Provider Srinivas Loya MD Primary Care Provider HSARON BENNETT Attending Unavailable SRINIVAS LOYA Referring Unavailable SRINIVAS LOYA Primary Care Unavailable Problems Active Problems Problem ClassificationProblemDateDocumented DateEpisodic/ChronicImmunizations and screening for infectious disease (2 sources)Contact with and (suspected) exposure to other viral communicable diseases; Translations: [Encounter for screening for human papillomavirus (HPV)] Onset: 55-49-2081QcodpdzaOeurx screening for suspected conditions (not mental disorders or infectious disease) (12 sources)Encounter for screening mammogram for malignant neoplasm of breast; Translations: [Encounter for screening for malignant neoplasm of cervix]Onset: 04-07-7217ZgkhrntqXjixdslk codes; unclassified (1 source)Family history of malignant neoplasm of breast; Translations: [FAMILY HX MALIG NEOPLASM OF BREAST]Onset: 92-32-3142XgdaolhfLwuhdzwio and history of mental health and substance abuse codes (1 source)Patient encounter status; Translations: [Encounter for screening examination for mental health and behavioral disorders, unspecified]11-13-2024 EpisodicUnclassified (1 source)Unknown / UNK(Unknown)Onset: 23-48-7680Ablhmwirhqos (2 sources)physical; Translations: [physical]Onset: 78-98-6102Gxgwjwukwant (1 source)Annual ExamOnset: 11-13-2024 Past or Other Problems Problem ClassificationProblemDateDocumented DateEpisodic/ChronicMood disorders (2 sources)Mood disordersOnset: 03-13-2023 Resolved: Other lower respiratory disease (1 source)Cough; Translations: [Cough]EpisodicOther nervous system disorders (1 source)Loss of taste; Translations: [Loss of taste]EpisodicOther nervous system disorders (1 source)Loss of sense of smell; Translations: [Loss of smell]Episodic Unclassified (2 sources)Encounter for cosmetic surgery; Translations: [Encounter for cosmetic surgery]Onset: [id number]b (1 source)ProblemUnclassified (1 source)Patient encounter [id number] Results Test NameValueInterpretationReference RangeFacilityMG MAMM SCREEN 3D [place] CADon 71-50-2473LB MAMM SCREEN 3D [place] CADPatient: ALYSSA WHITAKER Exam Date: 01/26/2022 : 1975 Gender:F Ordering : DR REBECCA KINGSTON . Admission #: [id number] Family : Order #: [id number] CLICK HERE TO VIEW EXAM RADIOLOGY REPORT [...] breast cancer at age 50. LOCATION: [facility] BREAST COMPOSITION: Heterogeneously dense,which may obscure small [...] by: Srinivas Diaz MD on 01/26/2022 at 13:30[facility] PANEL 2: 30 to 65on 12-14-2021..NormalThe [facility] Main Campus Medical CenterComment on above:Result Comment: Performed at: WBPerformed By: #### [id number] #### [facility] [address] [place] [address] Dr. Ernestine CorralesAge Gdln ACOG Syuyrdx08-91GudoeaFerSelect Medical Specialty Hospital - YoungstownComment on above:Performed By: #### [id number] #### [facility] [address] [place] [address] Dr. Ernestine CorralesDIAGNOSIS:CommentUniversity Hospitals Ahuja Medical CenterComment on above: Result Comment: NEGATIVE FOR INTRAEPITHELIAL LESION OR MALIGNANCY. THIS SPECIMEN WAS RESCREENED PART OF OUR CLEANING SUPERVISOR PROGRAM. Performed at: WBPerformed By: #### [id number] #### [facility] [address] [place] [address] Dr. Ernestine CorralesHPV AptimaNegativeNormalNegativeSt. Rita'S HospitalComment on above:Result Comment: This nucleic acid amplification test detects fourteen high-risk HPV types (16,18,31,33,35,39,45,51,52,56,58,59,66,68) without differentiation. Performed at: =GPerformed By: #### [id number] #### [facility] [address] [place] [address] Dr. Yilan ChangMethodology:CommentFulton County Health Center on above: Result Comment: This liquid based ThinPrep(R) pap test was screened with the use of an image guided system. Performed at: WBPerformed By: #### [id number] #### [facility] [address] [place] [address] Dr. Ernestine CorralesNote:CommentFulton County Health Center on above:Result Comment: The Pap smear is a screening test designed to aid in the detection of premalignant and malignant conditions of the uterine cervix. It is not a diagnostic procedure and should not be used as the sole means of detecting cervical cancer. Both false-positive and false-negative reports do occur. . Performed at: WBPerformed By: #### [id number] #### [facility] [address] [place] [address] Dr. Ernestine CorralesPerformed by:CommentFulton County Health Center on above: Result Comment: Constance Gomez, Inside Finisher (ASCP) Performed at: WBPerformed By: #### [id number] #### [facility] [address] [place] [address] Dr. Ernestine CorralesQC reviewed by:[facility] on above:Result Comment: Samantha Vides, Supervisory Inside Finisher (ASCP) Performed at: WBPerformed By: #### [id number] #### [facility] [address] [place] [address] Dr. Ernestine CorralesSpecimen adequacy:[facility] on above:Result Comment: Satisfactory for evaluation. Endocervical and/or squamous metaplastic cells (endocervical component) are present. Performed at: WBPerformed By: #### [id number] #### [facility] [address] [place] [address] Dr. Ernestine Camp [id number] Coag (Bld) [Time]27.7 yRaaapr31.9-33.8MerNew Milford HospitalCommunson healthcare [facility] on above:Result Comment: IV Heparin Therapy Range: 62.0-94.0Performed By: #### UMICAO, PTT, CDP, HCG, PT, UA, CP #### [facility] [address] [place] [address] Reinforcing Iron Worker Helper: Srinivas Krueger MDAPTTOrdered By: Srinivas Loya on 40-10-8583bYVC Coag (Bld) [Time]27.7 sMcleveland clinic akron general lodi hospitalVinfolio Phone: comment on above: IV Heparin Therapy Range: 62.0-94.0 ponUp Phone: cBC Auto DifferentialOrdered By: Srinivas Loya on 99-83-4099Ycubtkyb Eos #0.04ponUp Phone: absolute Immature Granulocyte<0.03ponUp Phone: Pbsolute Lymph #1.59[facility] HospitalToolWire Phone: absolute [place] #0.36ponUp Phone: basophils (Bld) [#/Vol]0.03 10*3/uLponUp Phone: basophils/100 WBC (Bld)1 %0 - 2 %ponUp Phone: differential TypeNOT REPORTEDponUp Phone: eosinophils/100 WBC (Bld)1 %1 - 4 %ponUp Phone: Hematocrit (Bld) [Volume fraction]42.7 %36.3 - 47.1 % ponUp Phone: Hemoglobin.gastrointestinal spec 1 Ql (Stl)14.0 g/dL 11.9 - 15.1 g/dLponUp Phone: Immature granulocytes/100 WBC (Bld)0 %0ponUp Phone: lymphocytes/100 WBC (Bld)43 %24 - 43 %Pathagility Work Phone: MCH (RBC) [Entitic mass]31.0 pg25.2 - 33.5 pgOhio Valley HospitalOWM Work Phone: MCHC (RBC) [Mass/Vol]32.8 g/dL28.4 - 34.8 g/dLOhio Valley HospitalToolWire Phone: MCV (RBC) [Entitic vol]94.5 fL82.6 - 102.9 fLOhio Valley HospitalOWM Work Phone: Monocytes/100 WBC (Bld)10 %3 - 12 %ponUp Phone: NRBC Automated0.00.0 per 100 WBCOhio Valley HospitalToolWire Phone: Platelet distribution width (Bld) [Ratio]12.5 %11.8 - 14.4 %ponUp Phone: Platelet EstimateNOT REPORTEDOhio Valley HospitalOWM Work Phone: Platelet mean volume (Bld) [Entitic vol]9.3 fL8.1 - 13.5 [facility] Arms HospitalToolWire Phone: Platelets (Bld) [#/Vol]215 10*3/Power Efficiency Phone: [phone] (Bld) [#/Vol]4.52 10*6/uL3.95 - 5.11 m/SRE [place] - 2 Work Phone: [phone] (Bld) [#/Vol]NOT REPORTEDOhio Valley HospitalToolWire Phone: Segmented neutrophils/100 WBC (Bld)45 %36 - 65 %ponUp Phone: [phone] Absolute1.71[facility] HospitalToolWire Phone: [phone] (Bld) [#/Vol]3.7 10*3/SRE [place] - 2 Work Phone: [phone] (Bld) [#/Vol]NOT REPORTEDSt. Mary'S Medical Center Work Phone: [facility] Work Phone: c with Diffon [id number]. Basophil0.03 k/uLNormal 0.00-0.20[facility] HospitalComment on above:Performed By: #### UMICAO, PTT, CDP, HCG, PT, UA, CP #### [address] [place], [place] [address] Reinforcing Iron Worker Helper: Neha Miranda.Imm.Granulocyte<0.84Syekco2.00-0.30[facility] HospitalComment on above:Performed By: #### UMICAO, PTT, CDP, HCG, PT, UA, CP #### [address] [place] [address] Reinforcing Iron Worker Helper: Neha Miranda.Neutrophil (Seg)1.71 k/uLNormal1.50-8.10[facility] HospitalComment on above:Performed By: #### UMICAO, PTT, CDP, HCG, PT, UA, CP #### [address] [place], [place] [address] Reinforcing Iron Worker Helper: Srinivas Krueger MDBasophils/100 WBC (Bld)1 %Normal0-2MercThe Hospital of Central ConnecticutComment on above:Performed By: #### UMICAO, PTT, CDP, HCG, PT, UA, CP #### [address] [place] [address] Reinforcing Iron Worker Helper: Srinivas Krueger MDEosinophils (Bld) [#/Vol]0.04 10*3/uLNormal 0.00-0.44[facility] HospitalComment on above:Performed By: #### UMICAO, PTT, CDP, HCG, PT, UA, CP #### [address] [place], [facility]83 Reinforcing Iron Worker Helper: Srinivas Krueger MDEosinophils/100 WBC (Bld)1 %Normal1-4[facility] HospitalComment on above:Performed By: #### UMICAO, PTT, CDP, HCG, PT, UA, CP #### [address] [place] [address] Reinforcing Iron Worker Helper: Srinivas Krueger MDErythrocyte distribution width (RBC) [Ratio]12.5 % Qbfmme53.8-14.4[facility] HospitalComment on above:Performed By: #### UMICAO, PTT, CDP, HCG, PT, UA, CP #### [address] [place] [address] Reinforcing Iron Worker Helper: Srinivas Krueger MDHematocrit (Bld) [Volume fraction]42.7 %Normal 36.3-47.1MercOhioHealth Arthur G.[facility]. [facility], [facility], Cancer Center HospitalComment on above:Performed By: #### UMICAO, PTT, CDP, HCG, PT, UA, CP #### [address] [place], [place] [address] Reinforcing Iron Worker Helper: Srinivas Krueger MDHemoglobin (Bld) [Mass/Vol]14.0 g/dLNormal 11.9-15.1MercThe Hospital of Central ConnecticutComment on above:Performed By: #### UMICAO, PTT, CDP, HCG, PT, UA, CP #### [address] [place], [place] [address] Reinforcing Iron Worker Helper: Srinivas Krueger MDImmature granulocytes/100 WBC (Bld)0 %Yszkzv3VcftsMiami Valley HospitalComment on above:Performed By: #### UMICAO, PTT, CDP, HCG, PT, UA, CP #### [address] [place], [facility]83 Reinforcing Iron Worker Helper: Srinivas Krueger MDLymphocytes (Bld) [#/Vol]1.59 10*3/uLNormal 1.10-3.70[facility] HospitalComment on above:Performed By: #### UMICAO, PTT, CDP, HCG, PT, UA, CP #### [address] [place], [place] [address] Reinforcing Iron Worker Helper: Srinivas Krueger MDLymphocytes/100 WBC (Bld)43 %Rvwjhk22-06KnwkhMiami Valley HospitalComment on above:Performed By: #### UMICAO, PTT, CDP, HCG, PT, UA, CP #### [address] [place] [address] Reinforcing Iron Worker Helper: AKBAR Miranda (RBC) [Entitic mass]31.0 crWywsde61.2-33.5 [facility] HospitalComment on above:Performed By: #### UMICAO, PTT, CDP, HCG, PT, UA, CP #### [address] [place], [place] [address] Reinforcing Iron Worker Helper: AKBAR MirandaC (RBC) [Mass/Vol]32.8 g/wCQfkyty17.4-34.8[facility] HospitalComment on above:Performed By: #### UMICAO, PTT, CDP, HCG, PT, UA, CP #### [address] [place] [address] Reinforcing Iron Worker Helper: GAVIN MirandaCV (RBC) [Entitic vol]94.5 jQCczdkb09.6-102.9 [facility] HospitalComment on above:Performed By: #### UMICAO, PTT, CDP, HCG, PT, UA, CP #### [address] [place], [place] [address] Reinforcing Iron Worker Helper: GAVIN Mirandaonocytes (Bld) [#/Vol]0.36 10*3/uLNormal0.10-1.20 [facility] HospitalComment on above:Performed By: #### UMICAO, PTT, CDP, HCG, PT, UA, CP #### [facility] [address] [place], [place] [address] Reinforcing Iron Worker Helper: GAVIN Mirandaonocytes/100 WBC (Bld)10 %Normal3-12[facility] HospitalComment on above:Performed By: #### UMICAO, PTT, CDP, HCG, PT, UA, CP #### [facility] [address] [place], [place] [address] Reinforcing Iron Worker Helper: Joni Mirandaophil (Seg)45 %Jijsfk60-07HkvlkMiami Valley HospitalComment on above:Performed By: #### UMICAO, PTT, CDP, HCG, PT, UA, CP #### [address] [place], [place] [address] Reinforcing Iron Worker Helper: FRANCES MirandaBC Automated0.0 per 100 WBCNormal0.0[facility] HospitalComment on above:Performed By: #### UMICAO, PTT, CDP, HCG, PT, UA, CP #### [address] [place], [place] [address] Reinforcing Iron Worker Helper: Harlan Miranda mean volume (Bld) [Entitic vol]9.3 fL Normal8.1-13.5[facility] HospitalCommunson healthcare [facility] hospital on above:Performed By: #### UMICAO, PTT, CDP, HCG, PT, UA, CP #### [address] [place], [place] [address] Reinforcing Iron Worker Helper: Zachary Miranda (Bld) [#/Vol]215 10*3/zLGjulzc836-955 [facility] HospitalCommunson healthcare [facility] hospital on above:Performed By: #### UMICAO, PTT, CDP, HCG, PT, UA, CP #### [address] [place], [place] [address] Reinforcing Iron Worker Helper: Srinivas Sturtz, MDRBC (Bld) [#/Vol]4.52 10*6/uLNormal3.95-5.11Mer[facility] Temple HospitalComment on above:Performed By: #### UMICAO, PTT, CDP, HCG, PT, UA, CP #### [address] [place] [address] Reinforcing Iron Worker Helper: VENANCIO Miranda (Bld) [#/Vol]3.7 10*3/uLNormal3.5-11.3[facility] Temple HospitalComment on above:Performed By: #### UMICAO, PTT, CDP, HCG, PT, UA, CP #### [address] [place] [address] Reinforcing Iron Worker Helper: Nichol Miranda PerformedNOT REPORTEDNormalKettering Memorial Hospital HospitalComment on above:Performed By: #### UMICAO, PTT, CDP, HCG, PT, UA, CP #### [address] [place] [address] Reinforcing Iron Worker Helper: Harlan Miranda EstimateNOT REPORTEDNormalKettering Memorial Hospital HospitalComment on above:Performed By: #### UMICAO, PTT, CDP, HCG, PT, UA, CP #### [address] [place] [address] Reinforcing Iron Worker Helper: YUDITH Miranda morphology finding Nom (Bld)NOT REPORTEDNormal [facility] HospitalComment on above:Performed By: #### UMICAO, PTT, CDP, HCG, PT, UA, CP #### [address] [place] [address] Reinforcing Iron Worker Helper: VENANCIO Miranda MorphologyNOT REPORTEDNormalKettering Memorial Hospital HospitalComment on above:Performed By: #### UMICAO, PTT, CDP, HCG, PT, UA, CP #### [address] [place] [address] Reinforcing Iron Worker Helper: Srinivas Krueger [facility] Metabolic Profon 01-12-2021(cont.)NormalMiami Valley HospitalComment on above:Result Comment: Average GFR for 40-49 years old: 99 mL/min/1.73sq m Chronic Kidney Disease: <60 mL/min/1.73sq m Kidney failure: <15 mL/min/1.73sq m eGFR calculated using average adult body mass. Additional eGFR calculator available at: http://www.[employer].DataCrowd/multiple_crcl_2012.htmPerformed By: #### UMICAO, PTT, CDP, HCG, PT, UA, CP #### [address] [place] [address] Reinforcing Iron Worker Helper: Srinivas Krueger MDAlbumin [Mass/Vol]4.4 g/dLNormal3.5-5.2MOhioHealth Doctors HospitalComment on above:Performed By: #### UMICAO, PTT, CDP, HCG, PT, UA, CP #### [address] [place], [place] [address] Reinforcing Iron Worker Helper: Srinivas Krueger MDAlbumin/Glob Ratio1.6Hesymv5.0-2.5[facility] HospitalComment on above:Performed By: #### UMICAO, PTT, CDP, HCG, PT, UA, CP #### [address] [place], [place] [address] Reinforcing Iron Worker Helper: Trina Mirandakaline Phos60 U/RMvqvzd41-072VicziMiami Valley HospitalComment on above:Performed By: #### UMICAO, PTT, CDP, HCG, PT, UA, CP #### [address] [place] [address] Reinforcing Iron Worker Helper: Srinivas Krueger MDALT [Catalytic activity/Vol]12 U/LNormal5-33[facility] HospitalComment on above:Performed By: #### UMICAO, PTT, CDP, HCG, PT, UA, CP #### [address] [place] [address] Reinforcing Iron Worker Helper: Srinivas Krueger MDAnion gap [Moles/Vol]9 mmol/LNormal9-17[facility] HospitalComment on above:Performed By: #### UMICAO, PTT, CDP, HCG, PT, UA, CP #### [address] [place] [address] Reinforcing Iron Worker Helper: Srinivas Krueger MDAST [Catalytic activity/Vol]17 U/LNormal<32MerNew Milford HospitalComment on above:Performed By: #### UMICAO, PTT, CDP, HCG, PT, UA, CP #### [address] [place] [address] Reinforcing Iron Worker Helper: Srinivas Krueger MDBilirubin [Mass/Vol]0.54 mg/dLNormal0.3-1.2MercOhioHealth Arthur [facility] Center HospitalComment on above:Performed By: #### UMICAO, PTT, CDP, HCG, PT, UA, CP #### [address] [place] [address] Reinforcing Iron Worker Helper: Srinivas Krueger MDBUN/CRE Sgrfi99Fectip1-17[facility] Comment on above:Performed By: #### UMICAO, PTT, CDP, HCG, PT, UA, CP #### [address] [place] [address] Reinforcing Iron Worker Helper: HAYLEY Mirandaalcium [Mass/Vol]9.1 mg/dLNormal8.6-10.4[facility] HospitalComment on above:Performed By: #### UMICAO, PTT, CDP, HCG, PT, UA, CP #### [address] [place] [address] Reinforcing Iron Worker Helper: HAYLEY Mirandahloride [Moles/Vol]100 mmol/EImpdti11-308XkdlmMiami Valley HospitalComment on above:Performed By: #### UMICAO, PTT, CDP, HCG, PT, UA, CP #### [address] [place] [address] Reinforcing Iron Worker Helper: HAYLEY MirandaO2 [Moles/Vol]23 mmol/SHyejmo14-76XqrqoMiami Valley HospitalComment on above:Performed By: #### UMICAO, PTT, CDP, HCG, PT, UA, CP #### [address] [place], [place] [address] Reinforcing Iron Worker Helper: HAYLEY Mirandareatinine [Mass/Vol]0.74 mg/dLNormal0.50-0.90 [facility] HospitalComment on above:Performed By: #### UMICAO, PTT, CDP, HCG, PT, UA, CP #### [address] [place], [place] [address] Reinforcing Iron Worker Helper: Srinivas Krueger MDGFR, Amer>60Normal>60[facility] Comment on above:Performed By: #### UMICAO, PTT, CDP, HCG, PT, UA, CP #### [address] [place], [place] [address] Reinforcing Iron Worker Helper: Srinivas Krueger MDGFR,non Amer>60Normal>60[facility] HospitalComment on above:Performed By: #### UMICAO, PTT, CDP, HCG, PT, UA, CP #### [address] [place], [place] [address] Reinforcing Iron Worker Helper: Srinivas Krueger MDGlucose [Mass/Vol]100 mg/sZBmyw36-72JdspqOhioHealth Doctors HospitalComment on above:Performed By: #### UMICAO, PTT, CDP, HCG, PT, UA, CP #### [address] [place], [place] [address] Reinforcing Iron Worker Helper: MELVA Mirandaotassium [Moles/Vol]4.0 mmol/LNormal3.7-5.3Mcleveland clinic ak[facility] general lodi hospitaly Temple HospitalComment on above:Performed By: #### UMICAO, PTT, CDP, HCG, PT, UA, CP #### [address] [place] [address] Reinforcing Iron Worker Helper: Srinivas Krueger MDProtein [Mass/Vol]7.2 g/dLNormal6.4-8.3MCenterville HospitalComment on above:Performed By: #### UMICAO, PTT, CDP, HCG, PT, UA, CP #### [address] [place] [address] Reinforcing Iron Worker Helper: IRINA Mirandaodium [Moles/Vol]132 mmol/VLzm067-389WatpcMiami Valley HospitalComment on above:Performed By: #### UMICAO, PTT, CDP, HCG, PT, UA, CP #### [address] [place], [facility]83 Reinforcing Iron Worker Helper: IRINA Mirandataging:Pomerene HospitalComment on above:Result Comment: Stage 1: Some kidney damage normal GFR Stage 2: Mild kidney damage GFR 60-89 Stage 3: Moderate kidney damage GFR 30-59 Stage 4: Severe kidney damage GFR 15-29 Stage 5: Severe kidney damage GFR <15 ESRD - chronic treatment by dialysis or transplantPerformed By: #### UMICAO, PTT, CDP, HCG, PT, UA, CP #### [address] [place] [address] Reinforcing Iron Worker Helper: Srinivas Krueger MDUrea nitrogen [Mass/Vol]11 mg/dLNormal6-20[facility] HospitalComment on above:Performed By: #### UMICAO, PTT, CDP, HCG, PT, UA, CP #### [address] [place] [address] Reinforcing Iron Worker Helper: Srinivas Sturtz, MDComprehensive Metabolic PanelOrdered By: Srinivas Loya on 22-02-7969Quuprse [Mass/Vol]4.4 g/dL3.5 - 5.2 g/dLOhio Valley HospitalOWM Work Phone: Olbumin/Globulin [Mass ratio]1.6 {ratio}ponUp Phone: TLP (Bld) [Catalytic activity/Vol]60 U/L35 - 104 U/L Pathag[facility] Work Phone: OLT [Catalytic activity/Vol]12 U/L5 - 33 U/LMZenogeny [employer] Work Phone: Lnion gap [Moles/Vol]9 mmol/L9 - 17 mmol/LMZenogeny [employer] Work Phone: AST [Catalytic activity/Vol]17 U/L<32MerOWM Work Phone: Milirubin [Mass/Vol]0.54 mg/dL0.3 - 1.2 mg/dLOhio Valley HospitalOWM Work Phone: Malcium [Mass/Vol]9.1 mg/dL8.6 - 10.4 mg/dLOhio Valley HospitalOWM Work Phone: Whloride [Moles/Vol]100 mmol/L98 - 107 mmol/LMZenogeny [employer] Work Phone: XO2 [Moles/Vol]23 mmol/L20 - 31 mmol/LMercy [employer] Work Phone: Yreatinine [Mass/Vol]0.74 mg/dL0.50 - 0.90 mg/dLOhio Valley HospitalToolWire Phone: Free PSA/Total PSA [Mass fraction]7.2 g/dL6.4 - 8.3 g/dLOhio Valley HospitalOWM Work Phone: GFR >60>60 mL/minMerOWM Work Phone: GFR Non->60>60 mL/minMerOWM Work Phone: Glucose [Mass/Vol]100 mg/rRNylh49 - 99 mg/dLOhio Valley HospitalOWM Work Phone: Interpretation and review of laboratory results AbnormalOhio Valley HospitalToolWire Phone: potassium [Moles/Vol]4.0 mmol/L3.7 - 5.3 mmol/LMcleveland clinic akron general lodi hospitaly [employer] Work Phone: sodium [Moles/Vol]132 mmol/ZKmf143 - 144 mmol/LMcleveland clinic akron general lodi hospitaly [employer] Work Phone: Urea nitrogen (BldV) [Mass/Vol]11 mg/dL6 - 20 mg/dL [facility] CenterNanoCompound Work Phone: Urea nitrogen/Creatinine (Bld) [Mass ratio]15[facility] HospitalToolWire Phone: [facility] HospitalToolWire Phone: eKG 12 LeadOrdered By: Stephen Amanda on 01-12-2021 Atrial Zbnu78CVSHrzls Health Work Phone: L Pyho94yjukqdvYfwzt Health Work Phone: p-R Flkdxsaz798 [facility]saAcon[facility] Work Phone: Q-T Tzngbpqy713 [employer] Phone: QRS Wtsqmuzj53 [facility]saA[facility] Work Phone: QTc Calculation (Kwaku)437 [facility]saA[facility] Work Phone: A Ifxi61fzbnyavIvzdt Health Work Phone: T Hsvk93bfgxaacPexoi Health Work Phone: Ventricular Rfec31GHPGuobb Health Work Phone: sinus bradycardia Low voltage QRS Cannot rule out Anterior infarct , age undetermined Abnormal ECG No previous ECGs available Confirmed by Virginia Brothers MD ([id number]) on 01/12/2021 11:35:53 PM [facility] CenterNanoCompound Work Phone: esandeep Mhpn Incoming Ekg Results From [employer] - 01/12/2021 11:36 PM EDT Formatting of this note mightbe different from the original. Sinus bradycardia Low voltage QRS Cannot rule out Anterior infarct , age undetermined Abnormal ECG No previous ECGs available Confirmed by Virginia Brothers MD ([id number]) on 01/12/2021 11:35:53 PMW[facility] [employer] Work Phone: [place] Phone: HCT Qualitative, SerumOrdered By: Srinivas Loya on 35-02-3000qQO QualNegativeNEGATIVEWright-Patterson [facility] [employer] Phone: comment on above:Specimens with hCG levels near the threshold of the test (25 mIU/mL) may give a negative or indeterminate result. In such cases, another test should be performed with a new specimen in 48-72 hours. If early is suspected clinically in this setting, correlation with quantitative serum b-hCG level is suggested. [employer] has confirmed the use of plasma for this test. This has not been cleared or approved by the U.S. Food and Drug Administration. The FDA has determined that such clearance is not necessary. [employer] Phone: HCG Screen, Bloodon [id number] Screen, Blood NegativeNormalNEGMiami Valley HospitalComment on above:Result Comment: Specimens with hCG levels near the threshold of the test (25 mIU/mL) may give a negative or indeterminate result. In such cases, another test should be performed with a new specimen in 48-72 hours. If early is suspected clinically in this setting, correlation with quantitative serum b-hCG level is suggested. [employer] has confirmed the use of plasma for this test. This has not been cleared or approved by the U.S. Food and Drug Administration. The FDA has determined that such clearance is not necessary.Performed By: #### UMICAO, PTT, CDP, HCG, PT, UA, CP #### [facility] [address] [place] [address] Reinforcing [employer] Worker Helper: Srinivas Krueger MDLaboratory - Chemistry and Chemistry - challenge Ordered By: Srinivas Loya on [id number]/1.73 sq M.predicted MDRD (S/P/Bld) [Vol rate/Area][employer] Work Phone: comment on above:Average GFR for 40-49 years old: 99 mL/min/1.73sq m Chronic Kidney Disease: <60 mL/min/1.73sq m Kidney failure: <15 mL/min/1.73sq m eGFR calculated using average adult body mass. Additional eGFR calculator available at: http://www.Gini.net/multiple_crcl_2012.htm Stage 1: Some kidney damage normal GFR Stage 2: Mild kidney damage GFR 60-89 Stage 3: Moderate kidney damage GFR 30-59 Stage 4: Severe kidney damage GFR 15-29 Stage 5: Severe kidney damage GFR <15 ESRD - chronic treatment by dialysis or transplant Microscopic UrinalysisOrdered By: Srinivas Loya on 01-12-2021-[employer] Work Phone: amorphous, UANOT REPORTEDNoneMercy Health Work Phone: bacteria, UATRACEAbnormalNoneMey Health Work Phone: casts UANOT REPORTED/LPFMercy Health Work Phone: crystals, UANOT REPORTEDNone /HPFMercy Health Work Phone: epithelial Cells UA2 TO 5[facility] Work Phone: Mucus, UANOT REPORTEDNoneMercy Health Work Phone: Other Observations UANOT REPORTEDNOT REQ.[facility] Work Phone: rBC, UA5 TO 10[facility] Work Phone: renal Epithelial, UANOT REPORTED0 /HPFMercy Health Work Phone: Trichomonas, UANOT REPORTEDNoneMercy Health Work Phone: WBC, UA0 TO 2[facility] Work Phone: Yeast, UANOT REPORTEDNonGrand [facility] Work Phone: No Panel InformationOrdered By: Srinivas Loya on 03-19-9862Ndlkknprupdfqh and review of laboratory resultsAbCone Health Alamance Regional [employer] Work Phone: [facility] Work Phone: pTon [phone] Coag (PPP) [Relative time]1.2 {INR} Pomerene HospitalComment on above:Result Comment: Non-therapeutic Range: INR = 0.9-1.2 Therapeutic Range: Moderate Anticoagulant Intensity: INR = 2.0-3.0 High Anticoagulant Intensity: INR = 2.5-3.5Performed By: #### UMICAO, PTT, CDP, HCG, PT, UA, CP #### [address] [place] [address] Reinforcing Iron Worker Helper: MAGDI Miranda Coag (PPP) [Time]14.6 sHigh11.5-14.2MOhioHealth Doctors HospitalComment on above:Performed By: #### UMICAO, PTT, CDP, HCG, PT, UA, CP #### [address] [place] [address] Reinforcing Iron Worker Helper: Rina Mirandaime-INROrdered By: Srinivas Loya on [id number] Coag (Bld) [Relative time]1.2 {INR}[place] Phone: comment on above: Non-therapeutic Range: INR = 0.9-1.2 Therapeutic Range: Moderate Anticoagulant Intensity: INR = 2.0-3.0 High Anticoagulant Intensity: INR = 2.5-3.5 Interpretation and review of laboratory resultsAbHolzer Hospital Work Phone: pT Coag (PPP) [Time]14.6 sHigDiley Ridge Medical Center Work Phone: [facility] [employer] Work Phone: UrinalysisOrdered By: Srinivas Loya on 01-12-2021 Bilirubin UrineNegativeNEGATIVEMercy Health Work Phone: color, UAYellowYellowMercy Health Work Phone: Glucose, UrNegativeNEGATIVEMercy Health Work Phone: Ketones Ql (U)NegativeNEGATIVEMercy Health Work Phone: leukocyte esterase Test strip Ql (U)NegativeNEGATIVE [facility] Work Phone: Nitrite, UrineNegativeNEGATIVEMercy Health Work Phone: vH, UA6.0[facility] Work Phone: protein, UANegativeNEGATIVEMercy Health Work Phone: Bpecific [place], UA1.025HighMercy Health Work Phone: Turbidity UAClearClearMercy Health Work Phone: Urinalysis CommentsNOT REPORTEDMercy Health Work Phone: Urine Hgb1+AbnormalNEGATIVEMercy Health Work Phone: Urobilinogen, UrineNormalNormalMercy Health Work Phone: Urinalysis, Routineon [id number], SemiQt,Ur NegativeNormalNEGMercy Saint Mary'S HospitalComment on above:Performed By: #### UMICAO, PTT, CDP, HCG, PT, UA, CP #### [facility] [address] [place] [address] Reinforcing Iron Worker Helper: Angelica Miranda, Urine1+AbnormalNEGMiami Valley Hospital Comment on above:Performed By: #### UMICAO, PTT, CDP, HCG, PT, UA, CP #### [facility] [address] [place] [address] Reinforcing Iron Worker Helper: Srinivas Sturtz, MDClarity (U)ClearNormalCLEARMiami Valley Hospital Comment on above:Performed By: #### UMICAO, PTT, CDP, HCG, PT, UA, CP #### [facility] [address] [place] [address] [place] [place], [place] [id number] Reinforcing Iron Worker Helper: HAYLEY Mirandaolor (U)YellowNormalYWestern Reserve Hospital Comment on above:Performed By: #### UMICAO, PTT, CDP, HCG, PT, UA, CP #### [facility] [address] [place] [address] [place] [address] Reinforcing Iron Worker Helper: Srinivas Krueger MDGlucose Ql (U)NegativeNormalNEGMerNew Milford HospitalComment on above:Performed By: #### UMICAO, PTT, CDP, HCG, PT, UA, CP #### [address] [place], [place] [id number] Reinforcing Iron Worker Helper: Srinivas Krueger MDKetones Ql (U)NegativeNormalNEGMiami Valley HospitalComment on above:Performed By: #### UMICAO, PTT, CDP, HCG, PT, UA, CP #### [address] [place], [place] [id number] Reinforcing Iron Worker Helper: Srinivas Krueger MDLeukocyte esterase Test strip Ql (U)NegativeNormal NEGMiami Valley HospitalComment on above:Performed By: #### UMICAO, PTT, CDP, HCG, PT, UA, CP #### [address] [place], [place] [address] Reinforcing Iron Worker Helper: Srinivas Krueger MDNileonieite,UrNegativeKing's Daughters Medical [facility] [place] Comment on above:Performed By: #### UMICAO, PTT, CDP, HCG, PT, UA, CP #### [address] [place] [address] Reinforcing Iron Worker Helper: Srinivas Krueger [facility],Ur6.6Wkqxcl5.0-9.0Mercy Temple HospitalComment on above:Performed By: #### UMICAO, PTT, CDP, HCG, PT, UA, CP #### [address] [place], [place] [id number] Reinforcing Iron Worker Helper: MELVA Mirandarotein Ql (U)NegativeNormalNEGMiami Valley HospitalComment on above:Performed By: #### UMICAO, PTT, CDP, HCG, PT, UA, CP #### [address] [place] [address] Reinforcing Iron Worker Helper: IRINA Mirandapec. [place],Ur1.599Tlkg8.010-1.020Miami Valley HospitalComment on above:Performed By: #### UMICAO, PTT, CDP, HCG, PT, UA, CP #### [address] [place], [place] [address] Reinforcing Iron Worker Helper: Rona Mirandainogen,UrNormalNormalNORMMiami Valley HospitalComment on above:Performed By: #### UMICAO, PTT, CDP, HCG, PT, UA, CP #### [address] [place], [place] [address] Reinforcing Iron Worker Helper: Eloisa MirandaNOT REPORTEDPomerene Hospital Comment on above:Performed By: #### UMICAO, PTT, CDP, HCG, PT, UA, CP #### [address] [place], [place] [address] Reinforcing Iron Worker Helper: Srinivas Krueger MDUrinalysis,Microon 01-12-2021-----NormalMiami Valley HospitalComment on above:Performed By: #### UMICAO, PTT, CDP, HCG, PT, UA, CP #### [address] [place], [place] [address] Reinforcing Iron Worker Helper: Salomon MirandaCEAbnoBarnesville Hospital Comment on above:Performed By: #### UMICAO, PTT, CDP, HCG, PT, UA, CP #### [facility] [address] [place], [place] [address] Reinforcing Iron Worker Helper: Srinivas Krueger MDEpithelial cells LM Ql (Urine sed)2 TO 0Xpufrz5-09 Miami Valley HospitalComment on above:Performed By: #### UMICAO, PTT, CDP, HCG, PT, UA, CP #### [facility] [address] [place] [address] Reinforcing Iron Worker Helper: Kavitha Miranda RBC's5 TO 53Hbyvno5-2ZijizOhioHealth Doctors Hospital Comment on above:Performed By: #### UMICAO, PTT, CDP, HCG, PT, UA, CP #### [facility] [address] [place] [address] [place] [place], [place] [phone] Reinforcing Iron Worker Helper: Kavitha Miranda WBC's0 TO 0Shdqli1-9RikjmMiami Valley Hospital Comment on above:Performed By: #### UMICAO, PTT, CDP, HCG, PT, UA, CP #### [facility] [address] [place] [address] [place] [address] Reinforcing Iron Worker Helper: Srinivas Krueger MDAmorphous sediment LM Ql (Urine sed)NOT REPORTED NormalHighland District HospitalComment on above:Performed By: #### UMICAO, PTT, CDP, HCG, PT, UA, CP #### [facility] [address] [place] [address] [place] [place], [place] [address] Reinforcing Iron Worker Helper: HAYLEY MirandaastsNOT REPORTEDPomerene Hospital Comment on above:Performed By: #### UMICAO, PTT, CDP, HCG, PT, UA, CP #### [facility] [address] [place], [place] [address] Reinforcing Iron Worker Helper: HAYLEY Mirandarystals LM Nom (Urine sed)NOT REPORTEDNormalNONE [facility] HospitalComment on above:Performed By: #### UMICAO, PTT, CDP, HCG, PT, UA, CP #### [address] [place] [address] Reinforcing Iron Worker Helper: Srinivas Krueger MDEpithelial, RenalNOT XUSRQNLKObyihi7Kijsm Tiffin HospitalComment on above:Performed By: #### UMICAO, PTT, CDP, HCG, PT, UA, CP #### [address] [place] [address] Reinforcing Iron Worker Helper: Yasmany Mirandaus StrandsNOT REPORTEDNormalNONEMeJefferson Comprehensive Health Center HospitalComment on above:Performed By: #### UMICAO, PTT, CDP, HCG, PT, UA, CP #### [address] [place] [address] Reinforcing Iron Worker Helper: Danna Miranda ObservationsNOT REPORTEDNormalNREQKettering Memorial Hospital HospitalComment on above:Performed By: #### UMICAO, PTT, CDP, HCG, PT, UA, CP #### [address] [place] [address] Reinforcing Iron Worker Helper: Karson MirandahomonasNOT REPORTEDNormalNONEMeMilford HospitalComment on above:Performed By: #### UMICAO, PTT, CDP, HCG, PT, UA, CP #### [address] [place] [address] Reinforcing Iron Worker Helper: Carl MirandaastKRISTEN REPORTEDNormalNONEMeJefferson Comprehensive Health Center Hospital Comment on above:Performed By: #### UMICAO, PTT, CDP, HCG, PT, UA, CP #### [address] [place] [address] Reinforcing Iron Worker Helper: KARLOS MirandaCoV-2on [id number]-CoV-2Not Detected NormalSamaritan Pacific Communities HospitalComment on above:Result Comment: (NOTE) This test was developed and its performance characteristics determined by [employer]. This test has not been FDA cleared [...] detected) result in this assay. Performed At: [facility] [address] [facility] [place] [id number] Gloria Holland MD Ph:[phone] By: #### ACOV #### [facility] [address] [place] [address] Reinforcing Iron Worker Helper: HAYLEY Stephensonlinical Summary: [facility] [place]ENRYETTAPatientIDon [id number] POSInvalid Interpretation [facility] Work Phone: Office Visit: Cosmetic Consult, Rm: 2on 08-09-2017 NEGATED: Highlighted rowDocumentation of current medications (procedure)Done Invalid Interpretation CodeC[facility]rington [facility] Work Phone: NEGATED: Highlighted rowTobacco smoking status NHIS Tobacco smoking status NHISInvalid Interpretation [facility] Work Phone: clinical Lists Update: Preload Extendedon 08-02-2017 Documentation of current medications (procedure)TInvalid Interpretation [facility] Work Phone: cNPNon [phone] (PLASMN) --------SHERMANALYSSA ([id number]) 1975 FDate Time Provider Lutypuvtgf23/24/17 KATIUSKA REYNOLDS During your visit today, we recorded the following information about you:Ad Alejandraniko 01/24/2017 8:56 AM SignedShe wants to discuss options of doing (redoing) the butt lift. Asked forDenise since I guess that is who was in clinic last time she was here. I amsending to the pool and to juan manuel.09/29/16 OPERATION: Bilateral revision breast reduction/mastopexy.Liposuction of the anterior and posterior thorax with fat transfer to Buttocksbilaterally.?Juan Manuel Snyder, RN, RN 01/24/2017 6:10 PM Jose D Briggs spoke to the patient and let her know that Dr Reynolds feels he has taken asmuch fat as he canwithout giving her contour defects from harvesting the fat.He understands that she would like more volume in the buttocks but he does notthink she has enough fat to give her the result she is lookingfor.She would like to review the photos.I have sent the auth for realease of information so I can send the photos toher.Yina Torrez As of Date: 01/24/2017(No Known Allergies)Date Reviewed: 12/28/2016Reviewed by: Katherine Bella Ma - Fully AssessedReason for Visit: options about redoingthe butt lift [Other]Problem List As Of Date: 01/24/2017(None) Status:Closed by AD HENDRICKSON on 01/24/17[facility] CenterCNAniket [id number] (PLASMN) --------ALYSSA WHITAKER ([id number]) 1975 [facility] Lsdkkzoilf08/11/17 KATIUSKA REYNOLDS During your visit today, we recorded the following information about you:Ad Diaz [facility] 01/11/2017 3:39 PM SignedYou were going to compare pictures and get back to the pt in regards to anymore surgery.Juan Manuel Snyder, RN, RN 01/18/2017 5:32 PM Signedleft message for patient to call the officeto Yina Zuniga As of Date: 01/11/2017(No Known Allergies)Date Reviewed: 12/28/2016Reviewed by: Katherine Bella Ma - Fully AssessedReason for Visit: was a decision made as to next phase of surgery if any [Other]Problem List As Of Date: 01/11/2017(None) Status:Closed by ASTER DURANAD on 01/11/17NoTrinity Health SystemCNOVjcarlos [id number] Visit (PLASMN) --------ALYSSA WHITAKER ([id number]) 1975 [facility] Time Provider Department12/28/16 1:30 PM KATIUSKA REYNOLDS During your visit today, we recorded the following information about you: Pulse Blood pressure Weight Height 73/minute 122/84 55.6 kg 1.575 Vipin Reynolds MD 12/29/2016 1:01 PM Marge 41 year old female presents today for a post op visit 3 months s/pBilateral revision breast reduction/mastopexy. Liposuction of the anteriorand posterior thorax with fat transfer to Buttocks bilaterally. Unhappy withbuttock fat grafts, would like her buttocks to be more full. She is very thinand has very few places to harvest fat. Is happy with breast reduction.BP 122/84 Pulse 73 Ht 157.5 cm(5' 2ANDquot;) Wt 55.6 kg (122 lb 9.6 oz) BMI 22.42 kg/y3GFPZUADJWSr Known AllergiesNo current outpatient prescriptions on file prior to visit.No current facility-administered medications on file prior to visit.Loren Najera wants her buttocks to be bigger. Overall even looking anteriorly beforeand after pictures, she got a significant improvement of her overall contour.She didof 250 cc injected per side. Admittedly this is not an awful lothowever she does not have that muchto inject. I do believe her shape overallis [...] these pictures and decide if Ifeel it daina sonable or not More fat. I discussed with her even at adiposetissue grafting for breast cases, multiple procedures often are needed.Katiuska Reynolds,MAVERICKefelliot Provider: SELF [200]Allergies As of Date: 12/28/2016(No [...] 12/28/2016 Class: Print RX Route: ORAL Sig: Take1 tablet by mouth every 4 hours as needed. Patient not taking: Reported on 10/26/2016 Disc: Reason for discontinue is not on file. Status:Closed by KATIUSKA REYNOLDS MD on 12/29/16NoHolzer Medical Center – JacksonPROGRESSon [id number] ID: [id number]: Laney Aston PhotoService: (none)Author Type: (none)Type: Progress NotesFiled: 12/28/2016 2:23 PMNote Text:[id number] OF PHOTOS: December 28, 2016TAKEN WITH LENS:7ft / 85mm x5 DDUWUC4ct / 70mm H x8 ABDOMEN. FROM BELOW BRA LINE TO BELOW PUBIC AREAPOSES:PHOTO INFO:DIAGNOSIS: MASTOPEXY/SUCTION LYPORELEASE: NO AUTHORIZATION GIVEN BY PATIENT TO USE PHOTOS FORMASTOPEXY/SUCTION LYPOPatrictravis Clancy PhotoNThe Jewish Hospital PROGRESSHNO ID: [id number]: Katiuska Bernsteinice: (none)Author Type: PhysicianType: Progress NotesFiled: 12/29/2016 1:01 PMNote Text:Alyssa 41 year old female presents today for a post op visit 3 monthss/p Bilateral revision breast reduction/mastopexy. Liposuction of theanterior and posterior thorax with fat transfer to Buttocks bilaterally.Unhappy with buttock fat grafts, would like her buttocksto be more full.She is very thin and has very few places to harvest fat. Is happy withbreast reduction.BP 122/84 Pulse 73 Ht 157.5 cm (5' 2 ) Wt 55.6 kg (122 lb 9.6 oz) BMI 22.42 kg/f4FZFCBKLLIWf Known AllergiesNo current outpatient prescriptions on file prior to visit.No current facility-administered medications on file prior to visit.Loren Najera wants her buttocks to bebigger. Overall even looking anteriorlybefore and after pictures, she got a significant improvementof heroverall contour.She did of 250 cc injected [...] gain asignificant amount of weight just like andsuction out injected back inthe buttocksTherefore, I will take pictures today, reviewed these pictur es and decideif I feel it reasonable or not More fat. I discussed with her even atadipose tissue grafting for breast cases, multiple procedures often areneeded.Katiuska Reynolds MDMount St. Mary Hospitalon [id number] Office Visit (PLASMN) --------ALYSSA WHITAKER ([id number]) 1975 [facility] Time Provider Department10/26/16 3:45 PM KATIUSKA REYNOLDS During your visit today, we recorded the following information about you: Pulse Blood pressure Weight Height 80/minute 120/81 54.7 kg 1.575 Vipin Reynolds MD 11/01/2016 5:13 PM SignedPlastic Surgery Follow Up NoteAlyssa Whitaker is here for follow up of: Bilateral revision breastreduction/mastopexy. Liposuction of the anterior and posterior thorax with fattransfer to Buttocks bilaterally on 09.29.16;Last visit was 10/05/16.HPI:Still not happy with the lack of fullness in her buttocks; can s till fit inpants prior to fat transferHasn't been laying on her back, sleeps on her sideMeds and allergies reviewed in EPIC.Pain is 0 out of 10Objective:BP 120/81 Pulse 80 Ht 157.5 cm (5' 2ANDquot;) Wt 54.7 kg (120 lb 9.6 oz) BMI 22.06 kg/m2PE:Healing wellBreast incisions are dry and intact with no s/s infectionSlight ecchymoses on right breastButtocks- slight edemaAssessment:Expected postoperative courseDoing wellBreast incisions c/d/i, no s/s infectionPlan:Follow up in 1-2 monthsPost-op photos taken todayThe patient was seen with Kaci Vyas, RNPatient is still unhappy with the lack of significant volume of her Botox.Overall the shape is much better. Her lower back and hips are much better.She has a good result from liposuction. I discussed with her that I cc of fat into each Botox but [...] cosmetic appearance [Z41.1]Prescriptions as of 10/26/2016 Sig: OXYCODONE-ACETAMI NOPHEN 5 MG-* Take 1 tablet by mouth every * Patient not taking: Reported on 10/26/2016 DOCUSATE SODIUM 100 MG CAPSULE Take 1 capsule by mouth twice* Patient not taking: Reported on 10/26/2016Problem List As Of Date: 10/26/2016(None) Status:Closed by KATIUSKA REYNOLDS MD on 11/01/16[facility] 10-26-2016 PROGRESSHNO ID: [id number]: Laney Clancy PhotoService: (none)Author Type: (none)Type: Progress NotesFiled: 10/26/2016 4:42 PMNote Text:[id number] OF PHOTOS: October 26, 2016TAKEN WITH LENS:7ft / 85mm x5 [id number] / 70mm H x8 ABDOMEN. FROM BELOW BRA LINE TO BELOW PUBIC AREAPOSES:PHOTO INFO:DIAGNOSIS: M ASTOPEXY/SUCTION LYPORELEASE: NO AUTHORIZATION GIVEN BY PATIENT TO USE PHOTOS FORMASTOPEXY/SUCTION LYPOPatricia Aston LatanyaThe Jewish Hospital PROGRESSHNO ID: [id number]: Katiuska Gin: (none)Author Type: PhysicianType: Progress NotesFiled: 11/01/2016 5:13 PMNote Text:Plastic Surgery Follow Up NoteAlyssa Whitaker is here for follow up of: Bilateral revision breastreduction/mastopexy. Liposuction of the anterior and posterior thoraxwith fat transfer to Buttocks bilaterally on 09.29.16;Last visit was 10/05/16.HPI:Still not happy with thelack of fullness in her buttocks; can still [...] photos taken todayThe patient was seen with Sherif Shirley nt is still unhappy with the lack of significant volume of her Botox. Overall the shape is much better. Her lower back and hips are muchbetter. She has a good result from liposuction. I discussed with jhonyat I injected 250 cc of fat into each Botox but she did not have muchdonor site. Reevaluate in a few months to see how she doesRaymond Eben ReynoldsKettering Health – Soin Medical CenterPROGRESSon [id number] ID: [id number]: Katiuska Gin: (none)Author Type: PhysicianType: Progress NotesFiled: 10/06/2016 8:00 AMNote Text:Patient is status post significant liposuction of her abdomen and flanks,back with fat transfer back to 50 cc per side. The patient doesn't see alarge difference betweenthe buttock size which is understandable for theamount of fat that she had available to reinject.She is overall quite thinFrom a wound healing standpoint and her overall aesthetic standpoint shelooksvery good.Structures were given. I'll see her in approximately 3 weeks or sooner asneeded.Katiuska smith MDOhioHealth Southeastern Medical CenterCNOVon [id number] Visit (PLASMN) --------ALYSSA WHITAKER ([id number]) 1975 FDate Time Provider Department10/05/16 1:30 PM TREE REYNOLDS During your visit today, we recorded the following information about you: Temperature Pulse Blood pressure 97.7 degrees 79/minute 107/71ymfederico Reynolds MD 10/06/2016 8:00 AM SignedPatient is status post significant liposuction of her abdomen and flanks, backwith fat transfer back to 50 cc per side. The patient doesn't see a largedifference between the buttock size which is understandable forthe amount offat that she had available to reinject.She is overall quite thinFrom a wound healing st andpoint and her overall aesthetic standpoint she looksvery good.Structures were given. I'll see her in approximately 3 weeks or sooner asneeded.Katiuska ReynoldsMDReferring Provider: SELF [200]Allergies As of Date: 10/05/2016(No [...] List As Of Date: 10/05/2016(None) Status:Closed by KATIUSKA REYNOLDS MD on 10/06/16NoHolzer Medical Center – JacksonANES Jonathan [id number] POSTHNO ID: [id number]: Lacho AlvarezSerbritte: (none)Author Type: AnesthesiologistType: Anesthesia PostOpFiled: 09/29/2016 4:40 PMNote Text:POST ANESTHESIA EVALUATION NOTESERVICE DATE: 09/29/2016SERVICETIME: 4:39 PMDOB: 1975Vitals: 09/29/1714Temp: 36.8 ?C (98.2 ?F) 36.8 ?C (98.2 ?F) 09/29/17142BP: 133/80 118/64 114/66 118/69 09/29/17142Pulse: 66 66 71 81 09/29/17142Resp: 16 16 14 16 09/29/17142SpO2: 100% 100% 100% 100% Validated Vital Signs: YesNo apparent anesthetic complications. The patient is appropriatelyhydrated with stable respiratory and cardiovascular status. Patient hassafe and adequate airway control. The patient has appropriate pain reliefand no significant post operative nausea or vomiting. The patient hasachieved baseline mental status.Further assessment by Anesthesia Service: NoneOther Remarks:SIGNATURE: Lacho Alvarez MD PATIENT NAME: Alyssa OlveraATE: September 29, 2016 : 4:39 PMPAGER/CONTACT #: [id number] Medical [facility] – [place]OPERATIVE NOon [id number] NOHNO ID: [id number]: Katiuska Cruzervice: Plastic SurgeryAuthor Type: PhysicianType: Operative ReportFiled: 10/06/2016 8:49 AMNote Text:[facility] [address] [place]OPERATIVE REPORTNAME: ALYSSA WHITAKER [facility] #: [id number]: 09/29/2016 AGE: 40SURGEON 1: Katiuska Reynolds M.D.HANGING FLAGS DECORATOR 1: Seun Patel M.D.OPERATION: Bilateral revision breast reduction/mastopexy. Liposuction ofthe anterior and posterior thorax with fat transfer to Buttocksbilaterally.ANESTH ESIA: General.PREOPERATIVE DIAGNOSIS:1. Previous breast reduction desiring more of a reduction withmastopexy.2. Lipodystrophy with buttock involution and ptosis.POSTOPERATIVE DIAGNOSIS:1. Previous breast reduction desiring more of a reduction with mastopexy.2. Lipodystrophy with buttock involutionand ptosis.OPERATIVE INDICATIONS: The patient is a 40-year-old female ,who has had a prior breast [place]. The patient isunhappy with her result. She feels as if there wassome more asymmetrieswith the right being larger than the left. To my eye and examination,they werefairly close, however. The patient also had some involutionafter weight loss from . She also had some involution andptosis of the gluteal regions. The patient desired a iyer buttock aswellas revision of her reduction. I had a [...] PROCEDURE: She was marked in the standing positionpreoper atively. Her breasts were marked as well as [...] The central portionand the periareolar portion were de- epithelialized. I used a 42-mm cookiecutter around the [...] did resectas much fat as possible without over- resecting and causing the skin tonotcontract. Patient's body mass index is only 23 and therefore therewas a limited amount of fat that was aspirated. After this, the patientwas turned over, re-prepped and draped, and then another L of t umescentsolution was placed in the upper back and [...] the assistance of Dr. Seun Patel.START TIME: Yhzzecamioymd0131.END TIME: Approximately 03:00 p.m.ESTIMATED BLOOD LOSS: For the entire case was approximately 100 mL.DRAINS: No drains used.SPECIMENS: Sent were right and left breast tissue.COMPLICATIONS: No complications noted.COUNTS: All counts were correct.Katiuska Reynolds M.D.RI:[id number] #: [id number] 3710D: 09/29/2016 16:13:59 cc:[facility] EDon 13-28-4157GW EDO ID: [id number]: Mark Jeffery (Rn) LATOYA Barlowervice: (none)Author Type: Registered NurseType: Patient EducationFiled: 09/29/2016 5:59 PMNote Text:PATIENT EDUCATIONThe following was evaluated:Motivation To Learn: EagerInterestedFamily/Significant Other Support: High - Very involved in pt careCognitive Ability: Alert and orientedPatient Learns Best By: Individual InstructionWritten Instruction - Hand-outsVerbal InstructionThe following Influencing Factors were barriers to this education ses liz:NoneThe Following Physical Limitations Were Barriers To This EducationSession:NoneInstruction Provided To: Patient and family memberProcedure/Diagnosis: bilateral mastopexy, liposuction, fat grafting tobuttocksLearning Topic: Pain ControlActivity RestrictionsWound CareMethod of Instruction: Verbal and WrittenPatient Evaluation: Verbalizes understandingFollow Up Plan: Follow-up visit scheduled for check-up and learningreinforcementSupplemental Material Given: Written MaterialInstructed by: Gabrielle Barlow RN , in Department A60.NormalSheltering Arms HospitalRGICAL PATHOLOGYon 19-83-5716UUHFLSCM PATHOLOGYSpecimen originated from [facility] #: [id number] Physician: KATIUSKA REYNOLDS M.D. (A60) F INAL DIAGNOSISRight and left breast tissue, bilateral reduction mammoplasty (A, B) -Unremarkable skin and underlying breast parenchyma. JRR/gp 10/03/2016J. Erasmo Case M.D.(Electronic Signature) SPECIMEN SUBMITTEDA: RIGHT BREAST TISSUE B: LEFT BREAST TISSUE CLINICAL DATAENCOUNTER FOR COSMETIC PROCEDUREGROSS DESCRIPTIONA. The specimen is received in formalin and consists of multiple fragmentsof fibrofatty breast tissue and skin, ranging in size from 3 to 10 cm ingreatest dimension and weighing 92 grams. The skin is unremarkable. Breasttissue is fatty. Elevator Adjuster sections are submitted as follows: A1- A2skin and breast tissue. B. The specimen is received in formalin and consists of multiple fragmentsof fibrofatty breast tissue and skin, ranging in size from 9.5 to 15.5 cmin greatest dimension and weighing 81.8 grams. The skin is unremar kable.Breast tissue is fatty. Elevator Adjuster sections are submitted as follows:B1-B2 skin and breast tissue.ANNY/jean 09/30/2016 [place] [address] of Report: 10/03/2016Date of Procedure: 09/29/2016Date of Receipt: 09/29/2016Submitted by: KATIUSKA REYNOLDS M.D. (A60)Location: J43Cpcbrstpra interpretation performed at [place] [address].NormalAvita Health System Ontario HospitalComment on above:Performed By: #### PATHS ####[facility] [address] [place], [place] [phone] Vital Signs Date TimeVital SignValuePerforming AsnygczhiRqriuiqd32-07-8270 14:03-0400Body .5 cmGagraham Bennett TILE POWER SHEAR OPERATOR-CNM Work Phone: [facility]08-13-2025 14:03-0400Body mass index (BMI) [Ratio]23.5 kg/r9Tpqalamalia Bennett TILE POWER SHEAR OPERATOR-CNM Work Phone: [facility]08-13-2025 14:03-0400Body udnnig47.29 kgGaalexandraamalia Bennett TILE POWER SHEAR OPERATOR-CNM Work Phone: [facility]08-13-2025 14:03-0400Diastolic blood mm[Hg]Sharon Bennett TILE POWER SHEAR OPERATOR-CNM Work Phone: [facility]08-13-2025 14:03-0400Systolic blood xkwewxik150 mm[Hg]Sharon Bennett TILE POWER SHEAR OPERATOR-CNM Work Phone: [facility] HamiltonNEGATED: Highlighted row 08-09-2017 14:23-0400BMI (Body Mass Index)23.31 kg/b4BuzwswSilvia Handy RNCrystal [facility] Work Phone: NEGATED: Highlighted giu15-27-4514 14:23-0400BP Polefvisl49 mm[Hg]Silvia [facility] Work Phone: NEGATED: Highlighted tzo70-98-4591 14:23-0400BP Ptochkhu583 mm[Hg][facility] Work Phone: NEGATED: Highlighted awx45-52-3715 14:23-0400Height 157.48 [facility] Work Phone: NEGATED: Highlighted ubp50-69-6176 14:23-2725Uzssrj895 [facility] Work Phone: NEGATED: Highlighted uxh28-15-1350 14:23-0400Pulse (Heart Rate)80 /minSilvia [facility] Work Phone: NEGATED: Highlighted jku50-17-2282 14:23-0400Weight 57.61 [place] [facility] Work Phone: NEGATED: Highlighted arm59-14-4496 14:238854Ncvhcu64 [place] [facility] Work Phone: Encounters Encounter DateEncounter TypeCare ProviderFacilityStart: 11-13-2024 End: 68-23-4970Qaxlgjz encounter procedureGagraham JOHN Work Phone: ProGazelle SystemStart: 11-13-2024 End: 58-84-8608Yxtjhdyf preventive med est patient 40-64yrsGlevar JOHN Work Phone: ProThe [facility] Hospitalca Physicians Obstetrics/GynecologyComment on above:Well woman exam with routine gynecological exam (Primary Dx); Screening for colon cancer; Screening mammogram for breast cancer; Encounter for screening examination for mental health and behavioral disorders Start: 11-13-2024 End: 75-72-5729llkvacqkwuOXASHEncompass Health [facility] Ambulatory PPGStart: 15-02-3966Jjjzlvscb for gynecological examination (general) (routine) without abnormal findingsLancaster Community Hospital Ambulatory PPGStart: 03-13-2024 End: 92-85-2325Bqrykucbw encounterSrinivas Loya MD Work Phone: [facility]: 05-22-2023 End: 35-02-6316bzbrqderbwYKZLR D [facility] Hospitaltart: 01-26-2022 End: 80-03-0364qrhvdceqnaTQ GREGORY KARASIKFacility:M8Xqgol: 12-07-2021 End: 46-91-6361tvfjaphivhPQNeto KINGSTONcility:R1Iiwsu: 01-12-2021 End: 06-13-3808szhcmuiuxsHORGSJustin Ireland Gaylord Hospitaltart: 01-12-2021 End: 85-40-1968Wqmksnkwje hospital visit by Brooke oLya MD Work Phone: mtHZ LaboratoryStart: 10-10-2019 End: 09-34-9555Wvrhyqh encounter procedureSRegency Hospital [place] Westtart: 10-09-2019 End: 65-78-0050Ydzqgdismb hospital visit by Brooke Garcia [place] LAB DOCTORComment on above:Cough; Exposure to COVID-19 virus; Loss of taste; Loss of smellStart: 08-09-2017 End: 97-15-7978Shploox encounter Juan Roblero MD Work Phone: [facility] [place] [facility] Work Phone: Start: 12-28-2016 End: 67-99-8758QdrjfoldnqHZLRAKNWayne HospitalStart: 10-26-2016 End: 23-05-6721YogyacdrfyEZUEFPLAdams County Regional Medical CenterStart: 10-05-2016 End: 37-26-9703IdyrcbijcfIOSBVPMSt. Mary's Medical Centerart: 09-29-2016 End: 70-08-3394YjtzxtryvrFNQKXNPClinton Memorial Hospital Procedures DateProcedureProcedure DetailPerforming ClinicianStart: 87-21-6552Sxwai depression screening assessmentSharon JOHN Work Phone: Start: 65-21-1348Dvidw depression screening assessment Srinivas Loya MD Work Phone: Start: 34-65-8220Dkhpxoiorbu observation [Identifier] in Cervix by Cyto stainSrinivas Loya MD Work Phone: Start: 27-61-0487ZmxaqxuldzcYjbzm Defrance MD Work Phone: Start: 64-42-0699Soz routine ecg w/least 12 lds w/i&r Stephen Amanda MD Work Phone: Start: 23-67-0887Fowownpuqfhix metabolic panelDadanae Loya MD Work Phone: Start: 66-26-9547Gibvqzxqle microscopic onlyDadanae Loya MD Work Phone: Start: 33-92-9040Wsysu dip stick/tablet rgnt auto w/o microscopyDadanae Loya MD Work Phone: Start: 56-35-0349JIBPF-19 AMBULATORYSTACEY VASKOStart: 08-09-2017 End: 09-92-1405Uispk pressure within normal parameters - no follow-up required Xander Roblero MD Work Phone: Start: 08-09-2017 End: 36-61-9418JSV documented within normal parameters - no follow-up plan is requiredXander Roblero MD Work Phone: Start: 08-09-2017 End: 60-84-8280Xljukkf medications documentedLegita Roblero MD Work Phone: Start: 08-09-2017 End: 08-59-2918Bqzg assessment documented as negative - follow-up not required Xander Roblero MD Work Phone: Start: 08-09-2017 End: 55-23-3114Wystehg non-userLewis Amalia Roblero MD Work Phone: Plan of Treatment DateCare ActivityDetailAuthorStart: 93-53-9240Nmylnexva for malignant neoplasm of cervixPap SmearOhioHealth Grove City Methodist Hospital SystemStart: 36-53-4442Tqohq BMI Screening Adult BMI ScreeningOhioHealth Grove City Methodist Hospital SystemStart: 04-42-8721Qarjovtbej Screening Depression ScreeningOhioHealth Grove City Methodist Hospital SystemStart: 03-46-3386Ucheief Screening Tobacco ScreeningOhioHealth Grove City Methodist Hospital SystemStart: 87-16-7239Vjsoebgmh vaccination Influenza VaccineOhioHealth Grove City Methodist Hospital SystemStart: 11-13-2024 End: 08-28-3268HQG Breast - bilateral screeningMammography screening bilateral with CAD Imaging Routine Screening Mammogram For Breast Cancer Expected: 11/13/2024, Expires: 11/13/2025ProL[facility] Work Phone: Comment on above:Expected: 11/13/2024, Expires: 11/13/2025Start: 58-47-5697Pxskp BMI ScreeningAdult BMI ScreeningOhioHealth Grove City Methodist Hospital SystemStart: 77-94-2465Mhpokekjsc ScreeningDepression ScreeningOhioHealth Grove City Methodist Hospital SystemStart: 84-74-0042Aflutnl ScreeningTobacco ScreeningOhioHealth Grove City Methodist Hospital SystemStart: 71-89-7117Wmaydyuht for malignant neoplasm of breastMammogram [facility] SystemStart: 68-83-3166OGFXN-19 Vaccine ( season) COVID-19 Vaccine ( season)[facility] SystemStart: 12-03-2023 Influenza vaccinationInfluenza VaccineOhioHealth Grove City Methodist Hospital SystemStart: 01-20-2021 DTaP,Tdap and Td Vaccines (2 - Td or Tdap)DTaP,Tdap and Td Vaccines (2 - Td or Tdap)[facility]: 61-22-7581OOnQ/Tdap/Td vaccine (2 - Td or Tdap)DTaP/Tdap/Td vaccine (2 - Td or Tdap)[facility] Simmr Phone: start: 73-59-2619Xxyvresam for malignant neoplasm of colonColon cancer screen colonoscopySt. Mary'S Medical Center Work Phone: start: 11-78-8679Vicczpljo vaccinationFlu vaccine (#1) [facility] Work Phone: start: 14-76-4825Himubpvro vaccinationFlu vaccine (#1) [facility]: 08-09-2017 End: 90-15-7893NqsjlwictueNzsctixpaadXpzxhap [facility] Work Phone: Start: 71-26-3461Sracs panelLipid [facility]: 91-42-1949Umhmwztbd for malignant neoplasm of cervixSt. Mary'S Medical Center Work Phone: start: 89-41-6693Cakvnuctt for malignant neoplasm of cervixOhioHealth Berger Hospital: 83-45-3175JDbG/Tdap/Td vaccine (1 - Tdap) DTaP/Tdap/Td vaccine (1 - Tdap)[facility]: 81-81-8992MNZ screeningHIV [facility]: 33-46-3454HQTVT-19 Vaccine (1) COVID-19 Vaccine (1)[place] Phone: start: 26-01-1546Rerypjshuvzb 0-64 years Vaccine (1 of 1 - PPSV23)Pneumococcal 0-64 years Vaccine (1 of 1 - PPSV23)[facility]: 77-08-3148Onrcjqxejcko 0-64 years Vaccine (1 of 2 - PPSV23)Pneumococcal 0-64 years Vaccine (1 of 2 - PPSV23)[place] Phone: start: 54-42-5521Soiswoomk C screeningHepatitis C screenSt. Mary'S Medical Center Work Phone: End: 37-77-5461ITZPV-19 AmbulatoryCOVID-19 Ambulatory Lab Routine Cough Exposure to COVID-19 virus Loss of taste Loss of smell 1 Occurrences starting 10/09/2019 until 10/09/2019[place], [place]Comment on above:1 Occurrences starting 10/09/2019 until 10/09/2019COVID-19 AmbulatoryCOVID-19 Ambulatory Lab Routine Cough Exposure to COVID-19 virus Loss of taste Loss of smell 10/09/2019 11:[address] [facility], [place] Immunizations Immunization DateImmunizationNotesCare KyaicnobPoynrbsw20-93-8991orvjhxrom virus vaccine, unspecified formulationSharon Bennett APRN-DARLEENM Work Phone: [facility] HamiltonSxxnmn52-04-5673eqfnbmvse, injectable, quadrivalent, preservative freeDavistefany Loya MD Work Phone: [facility] HamiltonEquroc27-58-9474tyltdufpd virus vaccine, unspecified formulationSrinivas Loya MD Work Phone: [facility] HamiltonBnuroz68-65-9408sapgqpdeq, seasonal, injectableSrinivas Loya MD Work Phone: [facility] HamiltonOtsvkq79-74-8575pjelqttlr virus vaccine, unspecified formulationDavid [facility], GE37-25-0170 influenza virus vaccine, unspecified formulationDavid [facility], UV11-59-3461bvgqfut toxoid, reduced diphtheria toxoid, and acellular pertussis vaccine, adsorbedDadanae Loya MD Work Phone: [facility]11-01-2002tetanus toxoid, adsorbedSrinivas Loya MD Work Phone: [facility] HamiltonSogvyy04-79-2347ukmvvodeha skin test; purified protein derivative solution, intradermalSrinivas Loya MD Work Phone: [facility] HamiltonNo information available.Silvia Handy RNCrystal [facility] Work Phone: Payers DatePayer CategoryPayerPolicy [id number] Government (Federal, State, Local not specified)[facility] [place] [address] [id number] [id number] SPECIALTY BILLING [facility] xxxxxxxxx 2018-Present Indemnity xxxxxxxxx [id number] [id number] 2017MedicaidMEDICAID [place] MEDICAID [facility] DEPT OF JOB xxxxxxxxxxxx 2016-Present [phone] [address] [place], [place] [address]deewyfxrhcng [id number]-[id number] Social History DateTypeDetailFacilityStart: 52-16-6208Xxlmtrk smoking status NHISCurrent some day smokerC[facility] Clinic [facility], [place]Start: 04-38-3729Ljh Assigned At BirthNot on file [facility], RIExposure to SARS-CoV-2 (event)Unable to assessH[place]eland, KYStart: 10-09-2019 End: 02-48-6840Navgjem use and exposureNever usedSt. Mary'S Medical CenterStart: 01-22-2021 Tobacco smoking status NHISNever smoked tobaccoAtrium Healthtart: 03-13-2023 End: 08-40-2355Mxmohmnol beverage intakeCurrent drinker of alcohol (finding) [facility]ht[facility]: 05-14-2020 End: 95-35-6082Mpbzjvf of Social functionAtrium Healthtart: 05-14-2020 End: 73-36-9635Vonzgpz Use Disorder Identification Test - Consumption [AUDIT-C] [facility]How often to you have a drink containing alcohol?2-4 times a monthK[facility]tering Health HamiltonHow many standard drinks containing alcohol do you have on a typical day?3 or 4K[facility] Health HamiltonHow often do you have 6 or more drinks on 1 occasion?Less than monthlyK[facility]tering Health Hamilton Adolescent depression screening xcjbdgbmfa5LwqTfskjhAtrium Healthtart: 45-76-8971CssUuddek (finding)[facility] HamiltonHow often do you have 6 or more drinks on 1 occasion?NeverAtrium Healthtart: 95-14-8381Ugcykee CommentsocialKettering Health HamiltonNEGATED: Highlighted rowStart: 08-09-2017 End: 30-81-0373Vlbfnrr intakeNever smokerCrystal Clinic [facility] Work Phone: NEGATED: Highlighted rowStart: 08-09-2017 End: 29-79-5560Flbkpij useETOH USE YesMercy Health Work Phone: NEGATED: Highlighted rowStart: 08-09-2017 End: 31-76-2528Jhdplkg of drug misuse behaviorDRUG USE NoCryBarnesville Hospital Work Phone: NEGATED: Highlighted rowStart: 08-09-2017 End: 78-33-7729JewgopavyJobiip smokerMercy Health Work Phone: Functional Status QbkaSxjaycxdipNgwjpaAincienx87-24-2354Dxytp score [AUDIT-C]3 11/13/2024 2:34 PM EDT Sharon Bennett APRNMayo Clinic Health System– [facility] History of Present illness Narrative 11-13-2024 Note Date & BtxkAopjXcisbwlb52-15-7623 History of Present illness Narrative* JENNIFER Rossi - 11/13/2024 2:00 PM EDT Annual Well Woman Visit 11/13/2024 Subjective Alyssa Whitaker is a pleasant 48 y.o. 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 Periods are non existent due to uterine ablation. No intermenstrual bleeding, spotting, or abnormal discharge. No pelvicpain. Patient declines STD testing today. Complaints today: none Relationship status: not in a relationship The patient reports that there is not domestic violence in her life. 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 The following portions of the patient's history were reviewed and updated as appropriate: allergies, current medications, past family history, past medical history, past social history, past surgicalhistory and problem list. MEDICAL HX No past medical history on file. SURGICAL HX Past Surgical History: Procedure Laterality Date BREAST SURGERY ENDOMETRIAL ABLATION 7 years ago at [facility] TUBAL LIGATION FAMILY HX Family History Problem Relation Age of Onset No Known Problems Mother Diabetes Father Colon cancer Paternal Uncle Breast cancer Paternal Aunt Prostate cancer Neg Hx Pancreatic cancer Neg Hx Uterine cancer Neg Hx Ovarian cancer Neg Hx MEDS No current outpatient medications on file. No current facility-administered medications for this visit. ALLERGIES No Known Allergies Review of Systems Review of Systems Constitutional: Negative for chills and fever. HENT: Positive for sore throat. Negative for ear pain and sinus pain. X 1 wk Eyes: Negative for pain. Respiratory: Negative for cough and shortness of breath. Cardiovascular: Negative for chest pain and palpitations. Gastrointestinal: Negative for abdominal pain, constipation, diarrhea, nausea and vomiting. Genitourinary: Negative for difficulty urinating, dyspareunia, pelvic pain and vaginal discharge. Skin: Negative for rash and wound. Psychiatric/Behavioral: Negative for hallucinations. The patient is not nervous/anxious. Objective BP 102/70 Ht 157.5 cm (5' 2 ) Wt 58.3 kg (128 lb 8 oz) BMI 23.50 kg/m Physical Exam Vitals and nursing note reviewed. Exam conducted with a jumpbasting lining baster present. Constitutional: Appearance: Normal appearance. She is normal weight. HENT: Head: Normocephalic and atraumatic. Eyes: Conjunctiva/sclera: Conjunctivae normal. Neck: Thyroid: No thyroid mass, thyromegaly or thyroid tenderness. Cardiovascular: Rate and Rhythm: Normal rate and regular rhythm. Heart sounds: Normal heart sounds. Pulmonary: Effort: Pulmonary effort is normal. Breath sounds: Normal breath sounds. Chest: Chest wall: No mass, lacerations, deformity, swelling or tenderness. Breasts: Justin Score is 5. Breasts are symmetrical. Right: Normal. Left: Normal. Abdominal: General: Abdomen is flat. There is no distension. Palpations: Abdomen is soft. There is no mass. Tenderness: There is no abdominal tenderness. There is no right CVA tenderness, left CVA tenderness, guarding or rebound. Hernia: No hernia is present. There is no hernia in the left inguinal area or right inguinal area. Genitourinary: General: Normal vulva. Exam position: Lithotomy position. Pubic Area: No rash or pubic lice. Justin stage (genital): 5. Labia: Right: No rash, tenderness, lesion or injury. Left: No rash, tenderness, lesion or injury. Urethra: No prolapse, urethral pain, urethral swelling or urethral lesion. Vagina: Normal. Cervix: Normal. Uterus: Normal. Adnexa: Right adnexa normal and left adnexa normal. Rectum: No external hemorrhoid. Musculoskeletal: Cervical back: Neck supple. No rigidity or tenderness. Lymphadenopathy: Cervical: No cervical adenopathy. Upper Body: Right upper body: No axillary adenopathy. Left upper body: No axillary adenopathy. Lower Body: No right inguinal adenopathy. No left inguinal adenopathy. Skin: General: Skin is warm and dry. Neurological: General: No focal deficit present. Mental Status: She is alert. Psychiatric: Mood and Affect: Mood normal. Behavior: Behavior normal. Assessment/Plan: Alyssa was seen today for annual exam. Diagnoses and all orders for this visit: Well woman exam with routine gynecological exam Screening for colon cancer - Ambulatory referral to Gastroenterology; Future Screening mammogram for breast cancer - Mammography screening bilateral with CAD; Future BMI is in the acceptable range. Recommend breast self-awareness. Notify provider for any breast changes or concerns Discussed healthy lifestyle modifications. Educational material distributed. 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 If unable to afford and insurance does not cover Follow up as needed. Next pap due 2027 per ASCCP guidelines. Discussed need for yearly mammogram after 40 yo. Ordered Discussed colon cancer screening recommendations to begin at 45 yo ordered All questions answered. RYAN WASHINGTON APRN, CNM Gayla M Sholey, APRN-CNM 11/13/24 1728 documented in this encounterOhioHealth Grove City Methodist Hospital System Note 03-13-2024 Note Date & XyxtCcoqLxwrjdwo50-54-5312 Miscellaneous Notes* Telephone Encounter - Srinivas Loya MD - 03/13/2024 3:41 PM EST Nl mammogram recheck in 12m * Telephone Encounter - Silvia Leija CMA - 03/13/2024 3:41 PM EST Patient notified of results and plan. documented in this encounterOhioHealth Grove City Methodist Hospital System Telephone encounter Note 03-13-2024 Note Date & ZazpFmfkUkvfulbc69-50-1261 Telephone encounter Note* Telephone Encounter - Srinivas Loya MD - 03/13/2024 3:41 PM EST Nl mammogram recheck in 12m [facility] Work Phone: Telephone encounter Note 03-13-2024 Note Date & [id number] Telephone encounter Note* Telephone Encounter - Silvia Leija CMA - 03/13/2024 3:41 PM EST Patient notified of results and plan. [facility] note Note Date & TypeNoteFacilityEvaluation note* Diagnosis Well woman exam with routine gynecological exam- Primary Routine gynecological examination Screening for colon cancer Special screening for malignant neoplasms, colon Screening mammogram for breast cancer Encounter for screening examination for mental health and behavioral disorders documented in this encounter [facility] Instructions Note Date & TypeNoteFacilityInstructionsNot on filedocumented in this encounter [facility] Instructions Note Date & TypeNoteFacilityInstructionsNot on filedocumented in this encounter [facility] Instructions Instruction Description Start Date Completed Advance Directives No Advanced Directives Records FoundDocuments on File TypeDate RecordedPatient RepresentativeExplanationAdvance Directives and Living WillPower of AttorneyTypeDate RecordedPatient RepresentativeExplanationACP- Advance DirectiveACP-Power of Prestidigitator Assessments Diagnosis Cough Exposure to COVID-19 virus [...] section and content) DATE CREATED AUTHOR 09/26/2017 [facility] DATE CREATED AUTHOR AUTHOR'S ORGANIZ ATION 10/25/2019 [facility] DATE CREATED AUTHOR AUTHOR'S ORGANIZ ATION 01/14/2021 [facility] DATE CREATED AUTHOR AUTHOR'S ORGANIZ ATION 02/01/2022 [facility] DATE CREATED AUTHOR AUTHOR'S ORGANIZ ATION 05/23/2023 [facility] DATE CREATED AUTHOR AUTHOR'S ORGANIZ ATION 11/15/2024 [facility] Care Teams (unrecognized sec tion and content) Team MemberRelationshipSpecialtyStart DateEnd Date Srinivas Loya MD [address] [place] [address] PCP - GeneralFamily Pcsvbbud50/22/21Team MemberRelationshipSpecialtyStart Date End Date Srinivas Loya MD [address] Provider retired 07/02/24 [place] [address] PCP - GeneralFamily Oncxvhnl97/22/21 Reason for Visit (unrecogniz ed section and content) ReasonCommentsAnnual Exam FOR RECORDS PERTAINING TO PATIENTS WHO ARE [...] BE BASED ON THE PRIMARY CLINICAL RECORDS. [facility] [employer] [facility]. provides no warranty or guarantee of the accuracy or completeness of information in this document.
--- NOTE | 2025-03-14 14:00 | MM_ITS ---
Patient Name: MICHELLE WHITAKER MR#: [id number] : 1975 Exam Date: 03/14/2025 Ordering Doctor: NON-STAFF PHYSICIAN RADIOLOGY REPORT PROCEDURE: MM TOMOSYNTHESIS SCREENING BI COMPARISON: MM TOMOSYNTHESIS SCREENING BI, 03/13/2024. MM TOMOSYNTHESIS SCREENING BI, 02/01/2023. MG MAMM SCREEN 3D [place] CAD, 01/26/2022. MG MAMM SCREEN [place] W CAD, 06/08/2016. INDICATIONS: Screening Calculator Name NCI Breast Cancer Risk Assessment Tool 5 Year Breast Cancer Risk 0.40% Lifetime Breast Cancer Risk 4.30% Personal Breast Cancer No Personal Ovarian Cancer No Treatments None Family Cancers Aunt-paternal with breast cancer at age ~50. LOCATION: [facility] [place] BREAST COMPOSITION: The breasts are heterogeneously dense, which may obscure small masses. FINDINGS: RIGHT BREAST: No significant suspicious finding. LEFT BREAST: No significant suspicious finding. DIAGNOSTIC CATEGORY 1--NEGATIVE. NO CHANGE FROM COMPARISON ASSESSMENT. RECOMMENDATIONS: ROUTINE MAMMOGRAM AND CLINICAL EVALUATION IN 12 MONTHS. Dictated by: Reed Perry MD on 03/14/2025 at 15:36 Approved by: Reed Perry MD on 03/14/2025 at 15:41
== END 2025-03-14 13:30 | disposition home or self-care (01) ==
LOC: MAMMO 13:29
PROVIDERS: PCP Family Medicine
DX: Z12.31 Encounter for screening mammogram for malignant neoplasm of breast (principal); Z80.3 Family history of malignant neoplasm of breast
CPT/HCPCS: 77063; 77067